=== PATIENT | female | born 1960 | race Caucasian/White ===

== ENCOUNTER 2016-09-15 10:43 | Emergency (ER) | payer OTHER ==
[2016-09-15 10:48] VITALS: BP 122/90; PULSE 103; TEMP 99.2; BMI 24.7
[2016-09-15] MEDS ORDERED: SODIUM CHLORIDE 0.9% 1000 ML INFUS.BAG IV ONE (11:19)
--- NOTE | 2016-09-15 11:19 | PDOC ---
History of Present Illness - General Chief Complaint: Rash Stated Complaint: ALLERGIC RXN/ REDDISH SKIN Time Seen by Provider: 09/15/16 10:58 - History of Present Illness Initial Comments: 09/15/16 11:19 CHIEF COMPLAINT: red skin HISTORY OF PRESENT ILLNESS: 56 yo F with hx of B cell lymphoma (s/p chemo 2009 , currently in remission) presents to [facility] with sudden onset rash since yesterday evening. Patient reports the rash as being " a little itchy, but mostly uncomfortable." She states that she was prescribed Bactrim 8 days ago for a "fungus infection in my toenail" and had no problems until last night around 5 pm when she noticed "a little redness" but today the rash erupted and was "way worse." She denies any fever, chills, vomiting, bleeding, or pain. She reports that she has never had Bactrim before. No recent travel or sick contacts. PAST MEDICAL HISTORY: Denies past medical history FAMILY HISTORY: Denies SOCIAL HISTORY: Denies tobacco, alcohol, illicit drug use. SURGICAL HISTORY: Denies ALLERGIES: pineapple REVIEW OF SYSTEMS General/Constitutional: Denies fever or chills. Denies weakness, weight change. HEENT: Denies change in vision. Denies ear pain or discharge. Denies sore throat. Cardiovascular: Denies chest pain or shortness of breath. Respiratory: Denies cough, wheezing, or hemoptysis. Gastrointestinal: Denies nausea, vomiting, diarrhea or constipation. Denies rectal bleeding. Genitourinary: Denies dysuria, frequency, or change in urination. Musculoskeletal: Denies joint or muscle swelling or pain. Denies neck or back pain. Skin:Rash to head, neck, torso, arms. Neurologic: Denies headache, vertigo, loss of consciousness, or loss of sensation. Psychiatric: Denies depression or anxiety. Endocrine: Denies increased thirst. Denies abnormal weight change. Hematologic/Lymphatic: Denies anemia, easy bleeding, or history of blood clots. Allergic/Immunologic: Denies hives or skin allergy. Denies latex allergy. PHYSICAL EXAM General Appearance: Well-appearing, appropriately dressed. No apparent distress , no intoxication. HEENT: No mucutaneous lesions appreciated to mouth including lips and buccal mucosa. . EOMI, PERRLA, normal ENT inspection, normal voice, TMs normal, pharynx normal. No conjunctival pallor. No photophobia, scleral icterus. Neck: Supple. Trachea midline. No tenderness, rigidity, carotid bruit, stridor , lymphadenopathy, or thyromegaly. Respiratory/Chest: Lungs CTAB. Cardiovascular: RRR. S1, S2. Gastrointestinal/Abdominal: Normal bowel sounds. Abdomen soft, non-distended. No tenderness or rebound tenderness. No organomegaly, pulsatile mass, guarding , hernia, hepatomegaly, splenomegaly. Musculoskeletal/Extremities: Normal inspection. FROM of all extremities, normal capillary refill. Pelvis Stable. No CVA tenderness. No tenderness to extremities, pedal edema, swelling, erythema or deformity. Integumentary: Generalized, macular, erythematous rash to head, neck, torso, bilateral arms. Appropriate color, dry, warm. No cyanosis, erythema, jaundice or rash Neurologic: sheet taker II-XII intact. Fully oriented, alert. Appropriate mood/affect. Motor strength 5/5. No appreciable EOM palsy, facial droop or sensory deficit. Past History - Past Medical History Allergies/Adverse Reactions: Allergies Allergy/AdvReac Type Severity Reaction Status Date / Time pineapple [Pineapple] Allergy Mild Swelling Verified 09/15/16 10:48 Home Medications: Ambulatory Orders Diphenhydramine HCl [Benadryl -] 25 mg PO Q6H #28 capsule 09/15/16 Gabapentin [Neurontin] 100 mg PO BID 09/15/16 Ibuprofen [Motrin -] 800 mg PO TID 09/15/16 Loratadine 10 mg PO DAILY 09/15/16 Sulfamethoxazole/Trimethoprim [Bactrim Ds -] 1 tab PO BID 09/15/16 Anemia: No Asthma: No Cancer: No HTN: Yes - Surgical History Abdominal Surgery: No Appendectomy: No Cardiac Surgery: No - Psycho/Social/Smoking Cessation Hx Anxiety: No Suicidal Ideation: No Smoking Status: No Smoking History: Never smoked Have you smoked in the past 12 months: No Number of Cigarettes Smoked Daily: 0 Hx Alcohol Use: No Drug/Substance Use Hx: No Substance Use Type: None Hx Substance Use Treatment: No *Physical Exam - Vital Signs Last Vital Signs Temp Pulse Resp BP Pulse Ox 99.2 F 103 H 20 122/90 96 09/15/16 10:44 09/15/16 10:44 09/15/16 10:44 09/15/16 10:44 09/15/16 10:44 Medical Decision Making - Medical Decision Making 09/15/16 13:01 56 yo F with hx of B-cell lymphoma (s/p chemo 2009, currently in remission) presents to [facility] with macular erythematous rash to head, neck, torso, and b/l arms s/p taking Bactrim for a toe infection x 8 days. Vitals signs notable for HR 103. Clinical presentation consistent with rash secondary to sulfa drug. -IVF -Benadryl 25 mg IVPB -Decadron 10 mg po Patient reassessed; states she is feeling better. Patient HR now 84. Advised to discontinue Bactrim and of signs and symptoms for return to ER; patient verbalized understanding and agrees to plan. 09/15/16 15:34 *DC/Admit/Observation/Transfer Diagnosis at time of Disposition: Allergic drug rash - Discharge Dispostion Disposition: HOME Condition at time of disposition: Improved Admit: No - Prescriptions Prescriptions: Diphenhydramine HCl [Benadryl -] 25 mg PO Q6H #28 capsule - Referrals Referrals: Zeferino Stoll MD [Primary Care Provider] - - Patient Instructions Printed Discharge Instructions: DI for Adverse Drug Reaction -- Other Additional Instructions: Please take medication as prescribed and follow up with your primary care doctor by the end of next week. Please stop taking Bactrim as discussed. If you develop any difficulty speaking, swallowing, or breathing, or develop any swelling to the mouth, lips, tongue, or throat, please return to the ER immediately.
[2016-09-15] MEDS ORDERED: DEXAMETHASONE LIQUID 0.5 MG/5 ML 240 ML BULK BOTTLE PO ONE (11:20)
[2016-09-15] MEDS ORDERED: DEXAMETHASONE SOD PHOSPHATE 10 MG/1 ML VIAL ONE (11:35)
== END 2016-09-15 13:53 | disposition home or self-care (01) ==
LOC: JERFT 10:43
PROC: 3E033GC Introduction of Other Therapeutic Substance into Peripheral Vein, Percutaneous Approach (ICD-10-PCS; principal; 2016-09-15)
PROC: 3E0337Z Introduction of Electrolytic and Water Balance Substance into Peripheral Vein, Percutaneous Approach (ICD-10-PCS; 2016-09-15)
DX: T50.905A Adverse effect of unspecified drugs, medicaments and biological substances, initial encounter (principal); Y92.9 Unspecified place or not applicable; C85.10 Unspecified B-cell lymphoma, unspecified site; I10 Essential (primary) hypertension
CPT/HCPCS: 99281-25

== ENCOUNTER 2019-07-05 13:57 | Inpatient (IN) | payer OTHER ==
--- NOTE | 2019-07-05 14:17 | PDOC ---
Rapid Medical Evaluation Medical Evaluation: Allergies Allergy/AdvReac Type Severity Reaction Status Date / Time pineapple [Pineapple] Allergy Mild Swelling Verified 09/15/16 10:48 07/05/19 14:17 I performed a brief in-person evaluation of this patient. Briefly, this is a 59-year-old female with a history of B-cell lymphoma ( completed chemotherapy in 2019) who presents with 3 days of fever, shaking chills, and bodyaches. She had a similar episode at the end of May and was seen in an urgent care on 06/15 and treated with a full course of Tamiflu (it is unclear whether she had a positive influenza test at that time). She denies cough, throat pain, abdominal pain, n/v/d, or any other focal symptoms. Pertinent physical exam findings: Alert, oriented, ill-appearing. Lungs CTAB. Febrile to 103 orally (took ibuprofen this morning) and tachycardic to 119, SpO2 94%, tachypneic at 24 RR/min. I have ordered the following: Influenza swab Sepsis panel CXR Tylenol Fluids Patient to proceed to the Main ED for further evaluation. Discharge Disposition - Diagnosis Fever - Discharge Dispostion Condition at time of disposition: Stable - Referrals - Patient Instructions - Post Discharge Activity
[2019-07-05] MEDS ORDERED: SODIUM CHLORIDE 1,000 ML IV STA (14:19)
[2019-07-05] MEDS ORDERED: ACETAMINOPHEN 500 MG TABLET (FP) PO ONE (14:19)
[2019-07-05] MEDS ORDERED: ACETAMINOPHEN 325 MG TABLET (FP) ONE (15:05)
--- NOTE | 2019-07-05 15:07 | PDOC ---
History of Present Illness - General Chief Complaint: SIRS, Suspected/Possible Stated Complaint: COLD SYMPTOMS Time Seen by Provider: 07/05/19 14:48 - History of Present Illness Initial Comments: Ms. Knight is a 59 y/o female with PMH significant B cell lymphoma, last chemotherapy 2009, thyroiditis, presenting today with fever and generalized muscle aches. Reports that she went to her PCP in June 15 for fever, chills , and muscle aches, with positive flu swab, and was give tamiflu. She completed her course and saw her PCP again on Tuesday, and was feeling much improved. She had a fever again at home over three days, and took 3 of ibuprofen yesterday. Presents today for fever, chills, and generalized body aches. Past History - Past Medical History Allergies/Adverse Reactions: Allergies Allergy/AdvReac Type Severity Reaction Status Date / Time pineapple [Pineapple] Allergy Mild Swelling Verified 09/15/16 10:48 Home Medications: Ambulatory Orders Diphenhydramine HCl [Benadryl -] 25 mg PO Q6H #28 capsule 09/15/16 Gabapentin [Neurontin] 100 mg PO BID 09/15/16 Ibuprofen [Motrin -] 800 mg PO TID 09/15/16 Loratadine 10 mg PO DAILY 09/15/16 Sulfamethoxazole/Trimethoprim [Bactrim Ds -] 1 tab PO BID 09/15/16 Anemia: No Asthma: No Cancer: No COPD: No HTN: Yes - Surgical History Abdominal Surgery: No Appendectomy: No Cardiac Surgery: No - Immunization History Immunization Up to Date: No - Psycho Social/Smoking Cessation Hx Smoking Status: No Smoking History: Never smoked Have you smoked in the past 12 months: No Number of Cigarettes Smoked Daily: 0 Information on smoking cessation initiated: No Hx Alcohol Use: No Drug/Substance Use Hx: No Substance Use Type: None Hx Substance Use Treatment: No Review of Systems - Review of Systems Comments:: GENERAL/CONSTITUTIONAL: Reports fever and chills. No weakness._ HEAD, EYES, EARS, NOSE AND THROAT: No change in vision. No change in hearing. No sore throat._ CARDIOVASCULAR: No chest pain or shortness of breath_ RESPIRATORY: Denies cough, hemoptysis_ GASTROINTESTINAL: No nausea, vomiting, diarrhea or constipation._ GENITOURINARY: No dysuria, frequency, or change in urination._ MUSCULOSKELETAL: Reports generalized joint and muscle swelling. No neck or back pain._ SKIN: No rash_ NEUROLOGIC: No headache, vertigo, loss of consciousness, or change in strength/ sensation._ ENDOCRINE: No increased thirst. No abnormal weight change_ HEMATOLOGIC/LYMPHATIC: No anemia, easy bleeding, or history of blood clots._ ALLERGIC/IMMUNOLOGIC: No hives or skin allergy._ *Physical Exam - Vital Signs Last Vital Signs Temp Pulse Resp BP Pulse Ox 103.0 F H 116 H 16 138/89 94 L 07/05/19 14:17 07/05/19 14:17 07/05/19 14:17 07/05/19 14:17 07/05/19 14:17 - Physical Exam GENERAL: Awake, alert, and oriented to person/place/time, in no acute distress_ HEAD: No signs of trauma, normoc ephalic, atraumatic _ EYES: PERRLA, EOMI, sclera anicteric, conjunctiva clear_ ENT: Hearing grossly normal, nares patent, oropharynx clear without exudates. No uvular deviation. Moist mucosa_ NECK: Normal ROM, supple, no lymphadenopathy, JVD, or masses_ LUNGS: No distress, speaks in full sentences, clear to auscultation bilaterally _ HEART: Regular rate and rhythm, normal S1 and S2, no murmurs appreciated, peripheral pulses normal and equal bilaterally._ ABDOMEN: Soft, nontender, normoactive bowel sounds. No guarding, no rebound. No masses_ EXTREMITIES: Normal inspection, Normal range of motion, no edema. No clubbing or cyanosis_ NEUROLOGICAL: Cranial nerves II through XII grossly intact. Normal speech, normal gait, no focal sensorimotor deficits _ SKIN: Warm, Dry, normal turgor, no rashes or lesions noted_ ED Treatment Course - LABORATORY CBC & Chemistry Diagram: 07/05/19 14:53 07/05/19 14:53 Medical Decision Making - Medical Decision Making 59F hx of B-cell lymphoma presenting with fever, generalized body aches, chills. 07/05/19 16:29 Labs reviewed. Laboratory Last Values WBC 23.2 K/mm3 (4.0-10.0) H 07/05/19 14:53 RBC 4.94 M/mm3 (3.60-5.2) 07/05/19 14:53 Hgb 13.1 GM/dL (10.7-15.3) 07/05/19 14:53 Hct 40.4 % (32.4-45.2) 07/05/19 14:53 MCV 81.6 fl (80-96) 07/05/19 14:53 MCH 26.6 pg (25.7-33.7) 07/05/19 14:53 MCHC 32.5 g/dl (32.0-36.0) 07/05/19 14:53 RDW 14.2 % (11.6-15.6) 07/05/19 14:53 Plt Count 229 K/MM3 (134-434) D 07/05/19 14:53 MPV 8.0 fl (7.5-11.1) 07/05/19 14:53 Absolute Neuts (auto) 15.6 K/mm3 (1.5-8.0) H 07/05/19 14:53 Neutrophils % 67.4 % (42.8-82.8) D 07/05/19 14:53 Lymphocytes % 22.0 % (8-40) D 07/05/19 14:53 Monocytes % 10.3 % (3.8-10.2) H 07/05/19 14:53 Eosinophils % 0.0 % (0-4.5) D 07/05/19 14:53 Basophils % 0.3 % (0-2.0) 07/05/19 14:53 Nucleated RBC % 0 % (0-0) 07/05/19 14:53 PT with INR 13.90 SEC (9.7-13.0) H 07/05/19 14:53 INR 1.18 (0.83-1.09) H 07/05/19 14:53 PTT (Actin FS) 29.2 SECONDS (25.2-36.5) 07/05/19 14:53 Sodium 133 mmol/L (136-145) L 07/05/19 14:53 Potassium 4.2 mmol/L (3.5-5.1) 07/05/19 14:53 Chloride 99 mmol/L (98-107) 07/05/19 14:53 Carbon Dioxide 26 mmol/L (21-32) 07/05/19 14:53 Anion Gap 8 MMOL/L (8-16) 07/05/19 14:53 BUN 14.5 mg/dL (7-18) 07/05/19 14:53 Creatinine 0.9 mg/dL (0.55-1.3) 07/05/19 14:53 Est GFR (CKD-EPI)AfAm 81.11 07/05/19 14:53 Est GFR (CKD-EPI)NonAf 69.99 07/05/19 14:53 Random Glucose 111 mg/dL (74-106) H 07/05/19 14:53 Lactic Acid 2.3 mmol/L (0.4-2.0) H* 07/05/19 14:53 Calcium 8.5 mg/dL (8.5-10.1) 07/05/19 14:53 Total Bilirubin 0.6 mg/dL (0.2-1) 07/05/19 14:53 AST 38 U/L (15-37) H 07/05/19 14:53 ALT 33 U/L (13-61) 07/05/19 14:53 Alkaline Phosphatase 124 U/L (45-117) H 07/05/19 14:53 LD Total 262 U/L (84-246) H 07/05/19 14:53 Total Protein 6.8 g/dl (6.4-8.2) 07/05/19 14:53 Albumin 2.8 g/dl (3.4-5.0) L 07/05/19 14:53 Influenza A (Rapid) Negative (Negative) 07/05/19 14:23 Influenza B (Rapid) Negative (Negative) 07/05/19 14:23 07/05/19 16:40 CXR shows findings c/w COPD, otherwise no acute intra thoracic process. 07/05/19 17:24 UA shows signs of UTI. Will treat with ceftriaxone. Urine Test Results Urine Color Yellow 07/05/19 16:15 Urine Appearance Cloudy 07/05/19 16:15 Urine pH 7.0 (5.0-8.0) 07/05/19 16:15 Ur Specific [place] 1.009 (1.010-1.035) L 07/05/19 16:15 Urine Protein 2+ (NEGATIVE) H 07/05/19 16:15 Urine Glucose (UA) Negative (NEGATIVE) 07/05/19 16:15 Urine Ketones Negative (NEGATIVE) 07/05/19 16:15 Urine Blood 2+ (NEGATIVE) H 07/05/19 16:15 Urine Nitrite Positive (NEGATIVE) H 07/05/19 16:15 Urine Bilirubin Negative (NEGATIVE) 07/05/19 16:15 Ur Leukocyte Esterase 2+ (NEGATIVE) H 07/05/19 16:15 07/05/19 17:34 Pt reassessed. Sats 94-97% while ambulating. Vital Signs Temperature 100.4 F H 07/05/19 17:26 Pulse Rate 89 07/05/19 17:26 Respiratory Rate 16 07/05/19 14:17 Blood Pressure 94/53 L 07/05/19 17:26 O2 Sat by Pulse Oximetry (%) 96 07/05/19 17:26 07/05/19 17:[address] Preston. Discharge - Discharge Information Problems reviewed: Yes Clinical Impression/Diagnosis: Fever Condition: Stable - Admission Yes - Follow up/Referral - Patient Discharge Instructions - Post Discharge Activity
[2019-07-05 15:09] LABS: BASO % 0.3 % (0-2.0); HEMATOCRIT 40.4 % (32.4-45.2); HEMOGLOBIN 13.1 GM/dL (10.7-15.3); MCH 26.6 pg (25.7-33.7); MCHC 32.5 g/dl (32.0-36.0); MEAN CELL VOLUME 81.6 fl (80-96); MONO % 10.3 % (3.8-10.2); NEUT % 67.4 % (42.8-82.8); PLATELET COUNT 229 K/MM3 (134-434); RBC 4.94 M/mm3 (3.60-5.2); RDW 14.2 % (11.6-15.6); WHITE BLOOD COUNT 23.2 K/mm3 (4.0-10.0)
--- NOTE | 2019-07-05 15:18 | PDOC ---
Documentation entered by Aminta Vera SCRIBE, acting as scribe for Marely Chacon MD. Marely Chacon MD: This documentation has been prepared by the Jody floyd Brenda, SCRIBE, under my direction and personally reviewed by me in its entirety. I confirm that the documentation accurately reflects all work, treatment, procedures, and medical decision making performed by me. Attending Attestation - Resident Resident Name: KwanAbdiel - ED Attending Attestation I have performed the following: I have examined & evaluated the patient, The case was reviewed & discussed with the resident, I agree w/resident's findings & plan, Exceptions are as noted - HPI HPI: 07/05/19 15:16 59yo hx thyroiditis, B cell lymphoma (in remission since 2009) presents to the ED with fever, chills, bodyaches x 3 days. tmax 103 Similar sxs 06/15/19, had +flu, treated with tamiflu, completed last tuesday, got better Took ibuprofen yesterday +urinary frequency, denies hematuria, dysuria, urgency, flank pain Denies N/V/D, headache, dizziness, focal weakness/numbness, rashes, stiff neck - Physicial Exam PE: 07/05/19 18:30 agree with resident exam - Medical Decision Making 07/05/19 18:00 59yo F presents to the ED with fever, bodyaches, and chills Here, febrile 103, tachycardic 117, hypoxic 94% Sepsis w/u initiated, pt found to have leukocytosis to 23, lactic 2.4, UA floridly + UTI Based on previous sensitivities, given ceftriaxone Given 30cc/kg IVF ADmitted to Dr. Preston for further mgmt Case discussed in detail with admitting physician including history, physical exam and ancillary studies. Admitting physician has assumed care for the patient, will follow all pending diagnostics and will complete the evaluation and treatment.
[2019-07-05 15:29] LABS: INR 1.18 (0.83-1.09); PROTHROMBIN TIME (PATIENT) 13.9 SEC (9.7-13.0)
[2019-07-05 15:31] LABS: ACTIVATED PTT 29.2 SECONDS (25.2-36.5)
[2019-07-05 15:44] LABS: ALBUMIN 2.8 g/dl (3.4-5.0); BILIRUBIN,TOTAL 0.6 mg/dL (0.2-1); BLOOD UREA NITROGEN 14.5 mg/dL (7-18); CALCIUM 8.5 mg/dL (8.5-10.1); CREATININE 0.9 mg/dL (0.55-1.3); POTASSIUM 4.2 mmol/L (3.5-5.1); TOT PROT 6.8 g/dl (6.4-8.2)
[2019-07-05 16:48] LABS: MACROCYTOSIS 0; OVALOCYTE 1+; PLATELET ESTIMATE NORMAL; TARGET CELLS 1+
[2019-07-05 17:02] LABS: EPI CELLS 0.4 /HPF (0-5/HPF); HYALINE CASTS 5 /lpf (0-8); URINE APPEARANCE CLOUDY; URINE BACTERIA 6158.6 /hpf (NEGATIVE); URINE BILIRUBIN NEGATIVE (NEGATIVE); URINE COLOR YELLOW; URINE GLUCOSE (UA) NEGATIVE (NEGATIVE); URINE KETONE NEGATIVE (NEGATIVE); URINE LEUK ESTERASE 2+ (NEGATIVE); URINE NITRITE POSITIVE (NEGATIVE); URINE PROTEIN 2+ (NEGATIVE); URINE RBC 8 /hpf (0-4); URINE UROBILINOGEN 0.2 mg/dL (0.2-1.0); URINE WBC 89 /hpf (0-5)
[2019-07-05 17:09] LABS: ANISOCYTOSIS 1+
[2019-07-05] MEDS ORDERED: CEFTRIAXONE 1,000 MG in DEXTROSE 5%-WATER - 50 ML IVPB ONE (17:18)
[2019-07-05] MEDS ORDERED: SODIUM CHLORIDE 0.9% 500 ML INFUS.BAG IV ONE (17:23)
--- NOTE | 2019-07-05 18:24 | HP ---
Admitting History and Physical - Admission History of Present Illness: Pt is a 59 y/o female with PMH significant B cell lymphoma(last chemotherapy 2009), and thyroiditis. Pt presented to the ER today with fever and generalized muscle aches. Reports that she went to her PCP in June 15 for fever, chills , and muscle aches, with positive flu swab, and was given tamiflu. She completed her course and saw her PCP again on Tuesday, and was feeling much improved. However she then developed a fever again at home over three days, and took 3 of ibuprofen yesterday. Presents today for fever, chills, and generalized body aches. - Past Medical History Heme/Onc: Yes: Other (B cell lymphoma) Endocrine: Yes: Hyperthyroidism - Smoking History Smoking history: Never smoked Have you smoked in the past 12 months: No Aproximately how many cigarettes per day: 0 - Alcohol/Substance Use Hx Alcohol Use: No Home Medications - Allergies Allergies/Adverse Reactions: Allergies Allergy/AdvReac Type Severity Reaction Status Date / Time pineapple [Pineapple] Allergy Mild Swelling Verified 09/15/16 10:48 - Home Medications Home Medications: Ambulatory Orders Gabapentin [Neurontin] 100 mg PO BID 09/15/16 Ibuprofen [Motrin -] 800 mg PO TID 09/15/16 Methimazole 5 mg PO BID 07/05/19 Multivitamin [Multiple Vitamins] 1 each PO DAILY 07/05/19 Family Medical History Family History: Unremarkable Review of Systems - Review of Systems Constitutional: reports: Fever, Malaise, Weakness Eyes: reports: No Symptoms HENT: reports: No Symptoms Neck: reports: No Symptoms Cardiovascular: reports: No Symptoms Respiratory: reports: No Symptoms Gastrointestinal: reports: No Symptoms Genitourinary: reports: No Symptoms Physical Examination Vital Signs: Vital Signs Temperature 100.4 F H 07/05/19 17:26 Pulse Rate 89 07/05/19 17:26 Respiratory Rate 16 07/05/19 14:17 Blood Pressure 94/53 L 07/05/19 17:26 O2 Sat by Pulse Oximetry (%) 96 07/05/19 17:26 Constitutional: Yes: No Distress Eyes: Yes: WNL HENT: Yes: WNL Neck: Yes: WNL, Supple Cardiovascular: Yes: WNL, Regular Rate and Rhythm Respiratory: Yes: WNL, Regular, CTA Bilaterally Gastrointestinal: Yes: WNL, Normal Bowel Sounds, Soft Musculoskeletal: Yes: WNL Extremities: Yes: WNL Edema: No Neurological: Yes: WNL, Alert, Oriented ...Motor Strength: WNL Labs: CBC, BMP 07/05/19 14:53 07/05/19 14:53 Problem List - Problems (1) Sepsis Assessment/Plan: Due to gm (-) bacteremia Cont IV antibxs Monitor BC/urine culture Cont IVF Lactic acid now normal Code(s): A41.9 - SEPSIS, UNSPECIFIED ORGANISM (2) B-cell lymphoma Code(s): C85.10 - UNSPECIFIED B-CELL LYMPHOMA, UNSPECIFIED SITE (3) Bacteremia Assessment/Plan: Gm (-) bacilli Cont IV antibx As per ID Code(s): R78.81 - BACTEREMIA (4) COPD (chronic obstructive pulmonary disease) Assessment/Plan: CXR shows COPD Code(s): J44.9 - CHRONIC OBSTRUCTIVE PULMONARY DISEASE, UNSPECIFIED
[2019-07-05] MEDS ORDERED: CEFTRIAXONE 1 GM/50 ML BAG ONE (18:37)
[2019-07-05] MEDS: ACETAMINOPHEN 325 MG TABLET (FP) PO PRN (22:00)
[2019-07-06] MEDS: DEXTROSE 5%-0.45% SALINE 1,000 ML IV SCH (01:29)
[2019-07-06] MEDS: ACETAMINOPHEN 325 MG TABLET (FP) PO PRN ×3 (04:54→22:47)
[2019-07-06] MEDS ORDERED: CEFTRIAXONE 1 GM in DEXTROSE 5%-WATER - 50 ML IVPB SCH (10:00)
[2019-07-06] MEDS ORDERED: cefTRIAXone SODIUM 1 GM VIAL ONE (10:19)
[2019-07-06] MEDS ORDERED: PT OWN MED DRAWER 7, Y5N ONE (10:19)
[2019-07-06] MEDS ORDERED: DEXTROSE 5%-WATER - 50 ML IVPB ONE ×2 (10:20→17:48)
[2019-07-06] MEDS: METHIMAZOLE 5 MG TABLET (FP) PO SCH ×2 (10:27→21:23)
[2019-07-06] MEDS: GABAPENTIN 100 MG CAPSULE PO SCH ×2 (10:27→21:23)
--- NOTE | 2019-07-06 15:36 | CON.ID ---
Consult Consult Specialty:: infectious diseases Referred by:: Reason for Consultation:: fever,weakness - History of Present Illness Chief Complaint: weakness,fever History of Present Illness: 59 y/o female with PMH significant B cell lymphoma, last chemotherapy 2009, thyroiditis, presenting today with fever and generalized muscle aches. Reports that she went to her PCP in June 15 for fever, chills, and muscle aches, with positive flu swab, and was give tamiflu. She completed her course and saw her PCP again on Tuesday, and was feeling much improved. She had a fever again at home over three days, and took 3 of ibuprofen yesterday. Presents today for fever, chills, and generalized body aches. currently feels better,spiked a fever patient was worked up and is having all her bottles positive for gm negative bacteremia - History Source History Provided By: Patient Limitations to Obtaining History: Language Barrier - Alcohol/Substance Use Hx Alcohol Use: No - Smoking History Smoking history: Never smoked Have you smoked in the past 12 months: No Aproximately how many cigarettes per day: 0 Home Medications - Allergies Allergies/Adverse Reactions: Allergies Allergy/AdvReac Type Severity Reaction Status Date / Time pineapple [Pineapple] Allergy Mild Swelling Verified 09/15/16 10:48 - Home Medications Home Medications: Ambulatory Orders Gabapentin [Neurontin] 100 mg PO BID 09/15/16 Ibuprofen [Motrin -] 800 mg PO TID 09/15/16 Methimazole 5 mg PO BID 07/05/19 Multivitamin [Multiple Vitamins] 1 each PO DAILY 07/05/19 Review of Systems - Review of Systems Constitutional: reports: Fever, Weakness, Other Eyes: reports: No Symptoms HENT: reports: No Symptoms Neck: reports: No Symptoms Cardiovascular: reports: No Symptoms Respiratory: reports: No Symptoms Gastrointestinal: reports: No Symptoms Genitourinary: reports: No Symptoms Musculoskeletal: reports: No Symptoms Integumentary: reports: No Symptoms Neurological: reports: No Symptoms Endocrine: reports: No Symptoms Hematology/Lymphatic: reports: No Symptoms Psychiatric: reports: No Symptoms Physical Exam Vital Signs: Vital Signs Temperature 100.0 F H 07/06/19 14:50 Pulse Rate 101 H 07/06/19 14:50 Respiratory Rate 07/06/19 14:50 Blood Pressure 150/87 07/06/19 14:50 O2 Sat by Pulse Oximetry (%) 98 07/06/19 09:00 Constitutional: Yes: Calm, Mild Distress Eyes: Yes: Conjunctiva Clear HENT: Yes: Atraumatic, Normocephalic Neck: Yes: Supple, Trachea Midline Cardiovascular: Yes: Regular Rate and Rhythm Respiratory: Yes: Regular, CTA Bilaterally Gastrointestinal: Yes: Normal Bowel Sounds, Soft Musculoskeletal: Yes: WNL Extremities: Yes: WNL Neurological: Yes: Alert, Oriented Psychiatric: Yes: Alert, Oriented Labs: CBC, BMP 07/05/19 14:53 07/05/19 14:53 Imaging - Results Chest X-ray: Report Reviewed, Image Reviewed Assessment/Plan this patient with multiple medical problems coming to the hospital with fever and chills and with h/o of recent flu now with positive blood cx i am going to change the abx to zosyn will await for cx report then will decide monitor for fevers rest as per the team
[2019-07-06] MEDS ORDERED: PIPERACILLIN/TAZOBACTAM 3.375 GM VIAL IVPB ONE (17:48)
[2019-07-06] MEDS: PIPERACILLIN/TAZOB 3.375 GM 3.375 GM in DEXTROSE 5%-WATER - 50 ML IVPB SCH (18:06)
--- NOTE | 2019-07-06 21:55 | PN ---
Progress Note, Physician History of Present Illness: Pt still spiking temp today - Current Medication List Current Medications: Active Medications Acetaminophen (Tylenol -) 650 mg PO Q6H PRN PRN Reason: FEVER AND PAIN Last Admin: 07/06/19 13:48 Dose: 650 mg Gabapentin (Neurontin -) 100 mg PO BID TEA Last Admin: 07/06/19 21:23 Dose: 100 mg Dextrose/Sodium Chloride (D5-1/2ns -) 1,000 mls @ 75 mls/hr IV ASDIR TEA Last Admin: 07/06/19 01:29 Dose: 75 mls/hr Piperacillin Sod/Tazobactam (Sod 3.375 gm/ Dextrose) 50 mls @ 100 mls/hr IVPB Q8H-IV TEA; Protocol Last Admin: 07/06/19 18:06 Dose: 100 mls/hr Methimazole (Tapazole -) 5 mg PO BID TEA Last Admin: 07/06/19 21:23 Dose: 5 mg - Objective Vital Signs: Vital Signs Temperature 97.9 F 07/06/19 20:39 Pulse Rate 76 07/06/19 20:39 Respiratory Rate 20 07/06/19 20:39 Blood Pressure 113/73 07/06/19 20:39 O2 Sat by Pulse Oximetry (%) 98 07/06/19 09:00 Cardiovascular: Yes: WNL, Regular Rate and Rhythm Respiratory: Yes: Other (Coarse BS B/L) Gastrointestinal: Yes: WNL, Normal Bowel Sounds, Soft Labs: CBC, BMP 07/05/19 14:53 07/05/19 14:53 INR, PTT INR 1.18 (0.83-1.09) H 07/05/19 14:53 Problem List - Problems (1) Sepsis Assessment/Plan: Due to gm (-) bacteremia Antibiotics changed to IV zosyn Monitor BC/urine culture Cont IVF Lactic acid now normal Code(s): A41.9 - SEPSIS, UNSPECIFIED ORGANISM (2) Bacteremia Assessment/Plan: Gm (-) bacilli Cont IV zosyn As per ID Code(s): R78.81 - BACTEREMIA (3) Hyperthyroidism Assessment/Plan: Cont tapizole Check TSH Endo consult Code(s): E05.90 - THYROTOXICOSIS, UNSP WITHOUT THYROTOXIC CRISIS OR STORM (4) COPD (chronic obstructive pulmonary disease) Assessment/Plan: CXR shows COPD Code(s): J44.9 - CHRONIC OBSTRUCTIVE PULMONARY DISEASE, UNSPECIFIED (5) B-cell lymphoma Code(s): C85.10 - UNSPECIFIED B-CELL LYMPHOMA, UNSPECIFIED SITE
[2019-07-07] MEDS ORDERED: PIPERACILLIN/TAZOBACTAM 3.375 GM VIAL IVPB ONE ×3 (01:24→17:53)
[2019-07-07] MEDS ORDERED: DEXTROSE 5%-WATER - 50 ML IVPB ONE ×3 (01:25→17:54)
[2019-07-07] MEDS: PIPERACILLIN/TAZOB 3.375 GM 3.375 GM in DEXTROSE 5%-WATER - 50 ML IVPB SCH ×3 (01:47→17:56)
[2019-07-07] MEDS: DEXTROSE 5%-0.45% SALINE 1,000 ML IV SCH ×3 (01:47→21:42)
[2019-07-07 10:21] LABS: ALBUMIN 2.3 g/dl (3.4-5.0); BASO % 0.9 % (0-2.0); BILIRUBIN,TOTAL 0.4 mg/dL (0.2-1); BLOOD UREA NITROGEN 9.6 mg/dL (7-18); CALCIUM 8.3 mg/dL (8.5-10.1); CREATININE 0.8 mg/dL (0.55-1.3); EOS % 0.3 % (0-4.5); HEMATOCRIT 36.1 % (32.4-45.2); HEMOGLOBIN 11.6 GM/dL (10.7-15.3); LYMPH % 36.9 % (8-40); MCH 26.4 pg (25.7-33.7); MCHC 32.1 g/dl (32.0-36.0); MEAN CELL VOLUME 82.1 fl (80-96); MEAN PLT VOLUME 9.2 fl (7.5-11.1); MONO % 13.2 % (3.8-10.2); NEUT % 48.7 % (42.8-82.8); PLATELET COUNT 230 K/MM3 (134-434); POTASSIUM 4.3 mmol/L (3.5-5.1); RBC 4.39 M/mm3 (3.60-5.2); RDW 14.5 % (11.6-15.6); TOT PROT 5.8 g/dl (6.4-8.2); WHITE BLOOD COUNT 12.1 K/mm3 (4.0-10.0)
[2019-07-07] MEDS: GABAPENTIN 100 MG CAPSULE PO SCH ×2 (10:40→21:43)
[2019-07-07] MEDS ORDERED: PT OWN MED DRAWER 7, Y5N ONE (10:41)
[2019-07-07] MEDS: METHIMAZOLE 5 MG TABLET (FP) PO SCH ×2 (10:42→21:43)
--- NOTE | 2019-07-07 16:27 | PN ---
Progress Note, Physician History of Present Illness: Pt states she feels much better today. Temp of 99.9F this a.m.. Breathing well. Denies abd pain/n/v/d, dysuria, suprapubic or flank pain. - Current Medication List Current Medications: Active Medications Acetaminophen (Tylenol -) 650 mg PO Q6H PRN PRN Reason: FEVER AND PAIN Last Admin: 07/06/19 22:47 Dose: 650 mg Gabapentin (Neurontin -) 100 mg PO BID TEA Last Admin: 07/07/19 10:40 Dose: 100 mg Dextrose/Sodium Chloride (D5-1/2ns -) 1,000 mls @ 75 mls/hr IV ASDIR TEA Last Admin: 07/07/19 06:34 Dose: 75 mls/hr Piperacillin Sod/Tazobactam (Sod 3.375 gm/ Dextrose) 50 mls @ 100 mls/hr IVPB Q8H-IV TEA; Protocol Last Admin: 07/07/19 10:38 Dose: 100 mls/hr Methimazole (Tapazole -) 5 mg PO BID TEA Last Admin: 07/07/19 10:42 Dose: 5 mg - Objective Vital Signs: Vital Signs Temperature 98.8 F 07/07/19 14:00 Pulse Rate 76 07/07/19 14:00 Respiratory Rate 20 07/07/19 14:00 Blood Pressure 117/73 07/07/19 14:00 O2 Sat by Pulse Oximetry (%) 96 07/07/19 09:00 Constitutional: Yes: No Distress, Calm Cardiovascular: Yes: Regular Rate and Rhythm Respiratory: Yes: Regular Gastrointestinal: Yes: Normal Bowel Sounds, Soft Genitourinary: Yes: WNL Musculoskeletal: Yes: WNL Extremities: Yes: WNL Integumentary: Yes: WNL Neurological: Yes: Alert, Oriented Labs: CBC, BMP 07/07/19 07:59 07/07/19 07:59 INR, PTT INR 1.18 (0.83-1.09) H 07/05/19 14:53 Microbiology 07/05/19 16:15 Urine - Urine Clean Catch Urine Culture - Preliminary Lactose Fermenting Neg Bacilli 07/05/19 14:53 Blood - Peripheral Venous Blood Culture - Preliminary Lactose Fermenting Neg Bacilli 07/05/19 14:53 Blood - Peripheral Venous Blood Culture - Preliminary Lactose Fermenting Neg Bacilli - ....Imaging Chest X-ray: Report Reviewed Problem List - Problems (1) B-cell lymphoma Code(s): C85.10 - UNSPECIFIED B-CELL LYMPHOMA, UNSPECIFIED SITE (2) Bacteremia Code(s): R78.81 - BACTEREMIA (3) COPD (chronic obstructive pulmonary disease) Code(s): J44.9 - CHRONIC OBSTRUCTIVE PULMONARY DISEASE, UNSPECIFIED (4) Fever Code(s): R50.9 - FEVER, UNSPECIFIED (5) Hyperthyroidism Code(s): E05.90 - THYROTOXICOSIS, UNSP WITHOUT THYROTOXIC CRISIS OR STORM (6) Sepsis Code(s): A41.9 - SEPSIS, UNSPECIFIED ORGANISM Assessment/Plan Gram negative Bacteremia UTI Sepsis Hx of B cell lymphoma -- Blood/Urine culture isolates pending -- wbc trending down, fevers appear to be resolving -- continue Zosyn for now -- continue monitor wbc, vitals closely
--- NOTE | 2019-07-07 20:21 | PN ---
Progress Note, Physician History of Present Illness: No new complaints - Current Medication List Current Medications: Active Medications Acetaminophen (Tylenol -) 650 mg PO Q6H PRN PRN Reason: FEVER AND PAIN Last Admin: 07/06/19 22:47 Dose: 650 mg Gabapentin (Neurontin -) 100 mg PO BID TEA Last Admin: 07/07/19 10:40 Dose: 100 mg Dextrose/Sodium Chloride (D5-1/2ns -) 1,000 mls @ 75 mls/hr IV ASDIR TEA Last Admin: 07/07/19 06:34 Dose: 75 mls/hr Piperacillin Sod/Tazobactam (Sod 3.375 gm/ Dextrose) 50 mls @ 100 mls/hr IVPB Q8H-IV TEA; Protocol Last Admin: 07/07/19 17:56 Dose: 100 mls/hr Methimazole (Tapazole -) 5 mg PO BID TEA Last Admin: 07/07/19 10:42 Dose: 5 mg - Objective Vital Signs: Vital Signs Temperature 97.4 F L 07/07/19 18:00 Pulse Rate 69 07/07/19 18:00 Respiratory Rate 07/07/19 18:00 Blood Pressure 130/77 07/07/19 18:00 O2 Sat by Pulse Oximetry (%) 96 07/07/19 09:00 Neck: Yes: WNL, Supple Cardiovascular: Yes: WNL, Regular Rate and Rhythm Respiratory: Yes: WNL, Regular, CTA Bilaterally Gastrointestinal: Yes: WNL, Normal Bowel Sounds, Soft Labs: CBC, BMP 07/07/19 07:59 07/07/19 07:59 INR, PTT INR 1.18 (0.83-1.09) H 07/05/19 14:53 Problem List - Problems (1) Sepsis Assessment/Plan: Due to Ecoli Cont IV zosyn Urine culture/BC (+) for Ecoli Lactic acid now normal Code(s): A41.9 - SEPSIS, UNSPECIFIED ORGANISM (2) Bacteremia Assessment/Plan: Urine culture/BC (+) for Ecoli Cont IV Zosyn Code(s): R78.81 - BACTEREMIA (3) Hyperthyroidism Assessment/Plan: Cont tapizole Check TSH Endo consult Code(s): E05.90 - THYROTOXICOSIS, UNSP WITHOUT THYROTOXIC CRISIS OR STORM (4) COPD (chronic obstructive pulmonary disease) Assessment/Plan: CXR shows COPD Code(s): J44.9 - CHRONIC OBSTRUCTIVE PULMONARY DISEASE, UNSPECIFIED (5) B-cell lymphoma Code(s): C85.10 - UNSPECIFIED B-CELL LYMPHOMA, UNSPECIFIED SITE
[2019-07-08] MEDS ORDERED: DEXTROSE 5%-WATER - 50 ML IVPB ONE ×2 (01:08→08:51)
[2019-07-08] MEDS ORDERED: PIPERACILLIN/TAZOBACTAM 3.375 GM VIAL IVPB ONE ×2 (01:08→08:51)
[2019-07-08] MEDS: PIPERACILLIN/TAZOB 3.375 GM 3.375 GM in DEXTROSE 5%-WATER - 50 ML IVPB SCH ×3 (01:43→19:00)
[2019-07-08] MEDS: DEXTROSE 5%-0.45% SALINE 1,000 ML IV SCH ×2 (01:43→22:08)
[2019-07-08 08:58] LABS: BASO % 0.9 % (0-2.0); EOS % 0.7 % (0-4.5); HEMOGLOBIN 11.3 GM/dL (10.7-15.3); LYMPH % 50.9 % (8-40); MCH 26.5 pg (25.7-33.7); MCHC 33.2 g/dl (32.0-36.0); MEAN CELL VOLUME 79.8 fl (80-96); MEAN PLT VOLUME 8.4 fl (7.5-11.1); MONO % 13.7 % (3.8-10.2); NEUT % 33.8 % (42.8-82.8); PLATELET COUNT 257 K/MM3 (134-434); RBC 4.26 M/mm3 (3.60-5.2); RDW 14.5 % (11.6-15.6); WHITE BLOOD COUNT 9.7 K/mm3 (4.0-10.0)
[2019-07-08] MEDS: METHIMAZOLE 5 MG TABLET (FP) PO SCH ×2 (09:21→22:07)
[2019-07-08] MEDS: GABAPENTIN 100 MG CAPSULE PO SCH ×2 (09:22→22:07)
[2019-07-08 09:32] LABS: ALBUMIN 2.3 g/dl (3.4-5.0); BILIRUBIN,TOTAL 0.8 mg/dL (0.2-1); BLOOD UREA NITROGEN 9.7 mg/dL (7-18); CALCIUM 8.1 mg/dL (8.5-10.1); CREATININE 0.8 mg/dL (0.55-1.3); POTASSIUM 3.5 mmol/L (3.5-5.1); TOT PROT 5.7 g/dl (6.4-8.2)
[2019-07-08 12:58] LABS: ANISOCYTOSIS 1+; MACROCYTOSIS 0; OVALOCYTE 1+; PLATELET ESTIMATE NORMAL; TARGET CELLS 1+
[2019-07-08] MEDS: ACETAMINOPHEN 325 MG TABLET (FP) PO PRN (17:35)
--- NOTE | 2019-07-08 18:44 | PN ---
Progress Note, Physician History of Present Illness: Pt feels well. Has no specific complaints. - Current Medication List Current Medications: Active Medications Acetaminophen (Tylenol -) 650 mg PO Q6H PRN PRN Reason: FEVER AND PAIN Last Admin: 07/08/19 17:35 Dose: 650 mg Gabapentin (Neurontin -) 100 mg PO BID [facility] Last Admin: 07/08/19 09:22 Dose: 100 mg Dextrose/Sodium Chloride (D5-1/2ns -) 1,000 mls @ 75 mls/hr IV ASDIR [facility] Last Admin: 07/08/19 01:43 Dose: Not Given Ceftriaxone Sodium 2 gm/ (Dextrose) 100 mls @ 200 mls/hr IVPB DAILY [facility]; Protocol Methimazole (Tapazole -) 5 mg PO BID [facility] Last Admin: 07/08/19 09:21 Dose: 5 mg - Objective Vital Signs: Vital Signs Temperature 98.9 F 07/08/19 15:00 Pulse Rate 74 07/08/19 15:00 Respiratory Rate 18 07/08/19 15:00 Blood Pressure 109/64 07/08/19 15:00 O2 Sat by Pulse Oximetry (%) 98 07/08/19 09:00 Constitutional: Yes: No Distress, Calm Cardiovascular: Yes: Regular Rate and Rhythm Respiratory: Yes: CTA Bilaterally Gastrointestinal: Yes: Normal Bowel Sounds, Soft Genitourinary: Yes: WNL Musculoskeletal: Yes: WNL Extremities: Yes: WNL Integumentary: Yes: WNL Neurological: Yes: Alert, Oriented Labs: CBC, BMP 07/08/19 07:00 07/08/19 07:00 INR, PTT INR 1.18 (0.83-1.09) H 07/05/19 14:53 Microbiology 07/05/19 14:53 Blood - Peripheral Venous Blood Culture - Final Escherichia Coli 07/05/19 16:15 Urine - Urine Clean Catch Urine Culture - Final Escherichia Coli 07/05/19 14:53 Blood - Peripheral Venous Blood Culture - Final Escherichia Coli Problem List - Problems (1) B-cell lymphoma Code(s): C85.10 - UNSPECIFIED B-CELL LYMPHOMA, UNSPECIFIED SITE (2) Bacteremia Code(s): R78.81 - BACTEREMIA (3) COPD (chronic obstructive pulmonary disease) Code(s): J44.9 - CHRONIC OBSTRUCTIVE PULMONARY DISEASE, UNSPECIFIED (4) Fever Code(s): R50.9 - FEVER, UNSPECIFIED (5) Hyperthyroidism Code(s): E05.90 - THYROTOXICOSIS, UNSP WITHOUT THYROTOXIC CRISIS OR STORM (6) Sepsis Code(s): A41.9 - SEPSIS, UNSPECIFIED ORGANISM Assessment/Plan E. coli Bacteremia UTI Sepsis Hx of B cell lymphoma -- urine/blood culture results noted -- d/c Zosyn, switch to Ceftriaxone -- repeat blood cultures -- leukocytosis resolved, temps trended down -- continue monitor
[2019-07-08] MEDS ORDERED: DEXTROSE 5%-WATER 100 ML IVPB ONE (19:43)
[2019-07-08] MEDS: CEFTRIAXONE 2 GM in DEXTROSE 5%-WATER 100 ML IVPB SCH (19:46)
[2019-07-08] MEDS ORDERED: PT OWN MED DRAWER 7, Y5N ONE (21:48)
--- NOTE | 2019-07-08 21:50 | PN ---
Progress Note, Physician History of Present Illness: No new complaints - Current Medication List Current Medications: Active Medications Acetaminophen (Tylenol -) 650 mg PO Q6H PRN PRN Reason: FEVER AND PAIN Last Admin: 07/08/19 17:35 Dose: 650 mg Gabapentin (Neurontin -) 100 mg PO BID TEA Last Admin: 07/08/19 09:22 Dose: 100 mg Dextrose/Sodium Chloride (D5-1/2ns -) 1,000 mls @ 75 mls/hr IV ASDIR TEA Last Admin: 07/08/19 01:43 Dose: Not Given Ceftriaxone Sodium 2 gm/ (Dextrose) 100 mls @ 200 mls/hr IVPB DAILY [facility]; Protocol Last Admin: 07/08/19 19:46 Dose: 200 mls/hr Methimazole (Tapazole -) 5 mg PO BID TEA Last Admin: 07/08/19 09:21 Dose: 5 mg - Objective Vital Signs: Vital Signs Temperature 100.7 F H 07/08/19 18:00 Pulse Rate 83 07/08/19 18:00 Respiratory Rate 18 07/08/19 18:00 Blood Pressure 138/82 07/08/19 18:00 O2 Sat by Pulse Oximetry (%) 98 07/08/19 09:00 Neck: Yes: WNL, Supple Cardiovascular: Yes: WNL, Regular Rate and Rhythm Respiratory: Yes: WNL, Regular, CTA Bilaterally Gastrointestinal: Yes: WNL, Normal Bowel Sounds, Soft Labs: CBC, BMP 07/08/19 07:00 07/08/19 07:00 INR, PTT INR 1.18 (0.83-1.09) H 07/05/19 14:53 Problem List - Problems (1) Sepsis Assessment/Plan: Due to Ecoli Cont IV ceftriaxone Urine culture/BC (+) for Ecoli Lactic acid now normal Code(s): A41.9 - SEPSIS, UNSPECIFIED ORGANISM (2) Bacteremia Assessment/Plan: Urine culture/BC (+) for Ecoli Cont IV ceftriaxone Code(s): R78.81 - BACTEREMIA (3) Hyperthyroidism Assessment/Plan: Cont tapizole TSH was normal Endo consult Code(s): E05.90 - THYROTOXICOSIS, UNSP WITHOUT THYROTOXIC CRISIS OR STORM (4) COPD (chronic obstructive pulmonary disease) Assessment/Plan: CXR shows COPD Code(s): J44.9 - CHRONIC OBSTRUCTIVE PULMONARY DISEASE, UNSPECIFIED (5) B-cell lymphoma Code(s): C85.10 - UNSPECIFIED B-CELL LYMPHOMA, UNSPECIFIED SITE
--- NOTE | 2019-07-08 22:53 | CONSULT ---
Consult Consult Specialty:: Endocrine Referred by:: dr.[email or web address] zheng Reason for Consultation:: hyperthyroidism - History of Present Illness Chief Complaint: fever weakness History of Present Illness: 59 y/o female with PMH Thyroiditis, B cell lymphoma, last chemotherapy 2009, presented with fever and generalized muscle aches. Reports that she went to her PCP in June 15 for fever, chills, and muscle aches, with positive flu swab, and was given tamiflu,. She completed her course and saw her PCP again on Tuesday , and was feeling much improved. She relapsed subsequently had fever and shakes, feeling weak dizzy she denies weight loss,nausea or vomiting. - Past Medical History Endocrine: Yes: Hyperthyroidism - Alcohol/Substance Use Hx Alcohol Use: No - Smoking History Smoking history: Never smoked Have you smoked in the past 12 months: No Aproximately how many cigarettes per day: 0 Home Medications - Allergies Allergies/Adverse Reactions: Allergies Allergy/AdvReac Type Severity Reaction Status Date / Time pineapple [Pineapple] Allergy Mild Swelling Verified 09/15/16 10:48 - Home Medications Home Medications: Ambulatory Orders Gabapentin [Neurontin] 100 mg PO BID 09/15/16 Ibuprofen [Motrin -] 800 mg PO TID 09/15/16 Methimazole 5 mg PO BID 07/05/19 Multivitamin [Multiple Vitamins] 1 each PO DAILY 07/05/19 Review of Systems - Review of Systems Constitutional: reports: Lethargy, Weakness Eyes: reports: No Symptoms HENT: reports: No Symptoms Neck: reports: No Symptoms Cardiovascular: reports: Shortness of Breath Respiratory: reports: Exercise Intolerance, SOB on Exertion Gastrointestinal: reports: No Symptoms Genitourinary: reports: No Symptoms Breasts: reports: No Symptoms Reported Musculoskeletal: reports: Muscle Cramps, Muscle Weakness Neurological: reports: Tremors, Weakness Physical Exam Vital Signs: Vital Signs Temperature 100.7 F H 07/08/19 18:00 Pulse Rate 83 07/08/19 18:00 Respiratory Rate 18 07/08/19 18:00 Blood Pressure 138/82 07/08/19 18:00 O2 Sat by Pulse Oximetry (%) 98 07/08/19 09:00 Constitutional: Yes: Anxious Eyes: Yes: EOM Intact HENT: Yes: Normocephalic Neck: Yes: Trachea Midline Cardiovascular: Yes: Tachycardia Respiratory: Yes: CTA Bilaterally Gastrointestinal: Yes: Normal Bowel Sounds ...Rectal Exam: Yes: Deferred Renal/: Yes: WNL Musculoskeletal: Yes: Muscle Weakness Edema: No Neurological: Yes: Alert, Oriented Labs: CBC, BMP 07/08/19 07:00 07/08/19 07:00 Problem List - Problems (1) B-cell lymphoma Problems reviewed: Yes Code(s): C85.10 - UNSPECIFIED B-CELL LYMPHOMA, UNSPECIFIED SITE (2) Bacteremia Problems reviewed: Yes Code(s): R78.81 - BACTEREMIA (3) Hyperthyroidism Problems reviewed: Yes Code(s): E05.90 - THYROTOXICOSIS, UNSP WITHOUT THYROTOXIC CRISIS OR STORM (4) Allergic drug rash Problems reviewed: Yes Code(s): L27.0 - GEN SKIN ERUPTION DUE TO DRUGS AND MEDS TAKEN INTERNALLY Assessment/Plan Current Active Problems B-cell lymphoma (Acute) Bacteremia (Acute) COPD (chronic obstructive pulmonary disease) (Acute) Fever (Acute) Hyperthyroidism (Acute) Sepsis (Acute) Abnormal Lab Results 07/08/19 07/08/19 07:00 07:00 MCV 79.8 L Neutrophils % 33.8 L D Neutrophils % (Manual) 32.3 L Lymphocytes % 50.9 H D Lymphocytes % (Manual) 40.4 H D Monocytes % 13.7 H Monocytes % (Manual) 11 H Chloride 109 H Anion Gap 5 L Calcium 8.1 L Total Protein 5.7 L Albumin 2.3 L Laboratory Results - last 24 hr 07/08/19 07/08/19 07:00 07:00 WBC 9.7 RBC 4.26 Hgb 11.3 Hct 34.0 MCV 79.8 L MCH 26.5 MCHC 33.2 RDW 14.5 Plt Count 257 MPV 8.4 Absolute Neuts (auto) 3.3 Neutrophils % 33.8 L D Neutrophils % (Manual) 32.3 L Band Neutrophils % 9.1 Lymphocytes % 50.9 H D Lymphocytes % (Manual) 40.4 H D Monocytes % 13.7 H Monocytes % (Manual) 11 H Eosinophils % 0.7 D Eosinophils % (Manual) 1.0 D Basophils % 0.9 Basophils % (Manual) 0.0 Myelocytes % (Man) 0 Promyelocytes % (Man) 0 Blast Cells % (Manual) 0 Nucleated RBC % 0 Metamyelocytes 0 Hypochromia 0 Platelet Estimate Normal Platelet Comment Present Polychromasia 0 Poikilocytosis 1+ Anisocytosis 1+ Microcytosis 1+ Macrocytosis 0 Spherocytes 1+ Target Cells 1+ Ovalocytes 1+ Zach Cells 1+ Sodium 139 Potassium 3.5 Chloride 109 H Carbon Dioxide 26 Anion Gap 5 L BUN 9.7 Creatinine 0.8 Est GFR (CKD-EPI)AfAm 93.53 Est GFR (CKD-EPI)NonAf 80.70 Random Glucose 92 Calcium 8.1 L Total Bilirubin 0.8 AST 18 ALT 25 Alkaline Phosphatase 108 Total Protein 5.7 L Albumin 2.3 L Laboratory Tests 07/07/19 07:59 TSH 1.41 plan: methimazole 5mg daily taper to normalized tsh once tsh above 4.0 stop methimazole and repeat tsh as outpatient ck free t4
[2019-07-09] MEDS: DEXTROSE 5%-0.45% SALINE 1,000 ML IV SCH ×2 (02:50→12:24)
[2019-07-09] MEDS: ACETAMINOPHEN 325 MG TABLET (FP) PO PRN (02:52)
[2019-07-09] MEDS ORDERED: DEXTROSE 5%-WATER 100 ML IVPB ONE (09:18)
[2019-07-09] MEDS: CEFTRIAXONE 2 GM in DEXTROSE 5%-WATER 100 ML IVPB SCH (09:28)
[2019-07-09] MEDS: GABAPENTIN 100 MG CAPSULE PO SCH ×2 (09:28→21:51)
[2019-07-09] MEDS: METHIMAZOLE 5 MG TABLET (FP) PO SCH (09:29)
--- NOTE | 2019-07-09 13:52 | PN ---
Progress Note, Physician History of Present Illness: feeling better repeat blood cx pending - Current Medication List Current Medications: Active Medications Acetaminophen (Tylenol -) 650 mg PO Q6H PRN PRN Reason: FEVER AND PAIN Last Admin: 07/09/19 02:52 Dose: 650 mg Gabapentin (Neurontin -) 100 mg PO BID [facility] Last Admin: 07/09/19 09:28 Dose: 100 mg Dextrose/Sodium Chloride (D5-1/2ns -) 1,000 mls @ 75 mls/hr IV ASDIR TEA Last Admin: 07/09/19 12:24 Dose: 75 mls/hr Ceftriaxone Sodium 2 gm/ (Dextrose) 100 mls @ 200 mls/hr IVPB DAILY [facility]; Protocol Last Admin: 07/09/19 09:28 Dose: 200 mls/hr Methimazole (Tapazole -) 5 mg PO DAILY [facility] Last Admin: 07/09/19 09:29 Dose: 5 mg - Objective Vital Signs: Vital Signs Temperature 98.5 F 07/09/19 10:00 Pulse Rate 88 07/09/19 10:00 Respiratory Rate 18 07/09/19 10:00 Blood Pressure 111/74 07/09/19 10:00 O2 Sat by Pulse Oximetry (%) 95 07/09/19 09:00 Constitutional: Yes: No Distress, Calm Cardiovascular: Yes: S1, S2 Respiratory: Yes: Regular, CTA Bilaterally Gastrointestinal: Yes: Normal Bowel Sounds, Soft Musculoskeletal: Yes: WNL Extremities: Yes: WNL Neurological: Yes: Alert, Oriented Psychiatric: Yes: Alert, Oriented Labs: CBC, BMP 07/08/19 07:00 07/08/19 07:00 INR, PTT INR 1.18 (0.83-1.09) H 07/05/19 14:53 Assessment/Plan roblem List - Problems (1) B-cell lymphoma Code(s): C85.10 - UNSPECIFIED B-CELL LYMPHOMA, UNSPECIFIED SITE (2) Bacteremia Code(s): R78.81 - BACTEREMIA (3) COPD (chronic obstructive pulmonary disease) Code(s): J44.9 - CHRONIC OBSTRUCTIVE PULMONARY DISEASE, UNSPECIFIED (4) Fever Code(s): R50.9 - FEVER, UNSPECIFIED (5) Hyperthyroidism Code(s): E05.90 - THYROTOXICOSIS, UNSP WITHOUT THYROTOXIC CRISIS OR STORM (6) Sepsis Code(s): A41.9 - SEPSIS, UNSPECIFIED ORGANISM Assessment/Plan Gram negative Bacteremia UTI Sepsis Hx of B cell lymphoma plan await for repeat blood cx continue abx rest as per the team
--- NOTE | 2019-07-09 22:55 | PN ---
Progress Note, Physician History of Present Illness: No further temp - Current Medication List Current Medications: Active Medications Acetaminophen (Tylenol -) 650 mg PO Q6H PRN PRN Reason: FEVER AND PAIN Last Admin: 07/09/19 02:52 Dose: 650 mg Gabapentin (Neurontin -) 100 mg PO BID [facility] Last Admin: 07/09/19 21:51 Dose: 100 mg Dextrose/Sodium Chloride (D5-1/2ns -) 1,000 mls @ 75 mls/hr IV ASDIR [facility] Last Admin: 07/09/19 12:24 Dose: 75 mls/hr Ceftriaxone Sodium 2 gm/ (Dextrose) 100 mls @ 200 mls/hr IVPB DAILY [facility]; Protocol Last Admin: 07/09/19 09:28 Dose: 200 mls/hr Methimazole (Tapazole -) 5 mg PO DAILY [facility] Last Admin: 07/09/19 09:29 Dose: 5 mg - Objective Vital Signs: Vital Signs Temperature 98.8 F 07/09/19 21:54 Pulse Rate 80 07/09/19 18:00 Respiratory Rate 18 07/09/19 18:00 Blood Pressure 131/80 07/09/19 18:00 O2 Sat by Pulse Oximetry (%) 95 07/09/19 09:00 Neck: Yes: WNL, Supple Cardiovascular: Yes: WNL, Regular Rate and Rhythm Respiratory: Yes: WNL, Regular, CTA Bilaterally Gastrointestinal: Yes: WNL, Normal Bowel Sounds, Soft Labs: CBC, BMP 07/08/19 07:00 07/08/19 07:00 INR, PTT INR 1.18 (0.83-1.09) H 07/05/19 14:53 Problem List - Problems (1) Sepsis Assessment/Plan: Due to Ecoli Cont IV ceftriaxone Urine culture/BC (+) for Ecoli Lactic acid now normal Repeat BC pending but negative to date Code(s): A41.9 - SEPSIS, UNSPECIFIED ORGANISM (2) Bacteremia Assessment/Plan: Urine culture/BC (+) for Ecoli Cont IV ceftriaxone Code(s): R78.81 - BACTEREMIA (3) Hyperthyroidism Assessment/Plan: Decrease dose of tapizole and taper TSH was normal Endo consult noted Code(s): E05.90 - THYROTOXICOSIS, UNSP WITHOUT THYROTOXIC CRISIS OR STORM (4) COPD (chronic obstructive pulmonary disease) Assessment/Plan: CXR shows COPD Code(s): J44.9 - CHRONIC OBSTRUCTIVE PULMONARY DISEASE, UNSPECIFIED (5) B-cell lymphoma Code(s): C85.10 - UNSPECIFIED B-CELL LYMPHOMA, UNSPECIFIED SITE
[2019-07-10] MEDS: DEXTROSE 5%-0.45% SALINE 1,000 ML IV SCH ×2 (03:17→21:34)
[2019-07-10] MEDS ORDERED: DEXTROSE 5%-WATER 100 ML IVPB ONE ×2 (10:20→10:34)
[2019-07-10] MEDS ORDERED: PT OWN MED DRAWER 7, Y5N ONE (10:35)
[2019-07-10] MEDS: CEFTRIAXONE 2 GM in DEXTROSE 5%-WATER 100 ML IVPB SCH (10:36)
[2019-07-10] MEDS: GABAPENTIN 100 MG CAPSULE PO SCH ×2 (10:37→21:34)
[2019-07-10] MEDS: METHIMAZOLE 5 MG TABLET (FP) PO SCH (10:37)
--- NOTE | 2019-07-10 12:24 | PN ---
Progress Note, Physician History of Present Illness: stable no new issues - Current Medication List Current Medications: Active Medications Acetaminophen (Tylenol -) 650 mg PO Q6H PRN PRN Reason: FEVER AND PAIN Last Admin: 07/09/19 02:52 Dose: 650 mg Gabapentin (Neurontin -) 100 mg PO BID [facility] [place] Last Admin: 07/10/19 10:37 Dose: 100 mg Dextrose/Sodium Chloride (D5-1/2ns -) 1,000 mls @ 75 mls/hr IV ASDIR [facility] Last Admin: 07/10/19 03:17 Dose: 75 mls/hr Ceftriaxone Sodium 2 gm/ (Dextrose) 100 mls @ 200 mls/hr IVPB DAILY [facility]; Protocol Last Admin: 07/10/19 10:36 Dose: 200 mls/hr Methimazole (Tapazole -) 5 mg PO DAILY [facility] Last Admin: 07/10/19 10:37 Dose: 5 mg - Objective Vital Signs: Vital Signs Temperature 98.9 F 07/10/19 06:00 Pulse Rate 75 07/10/19 06:00 Respiratory Rate 18 07/10/19 06:00 Blood Pressure 117/67 07/10/19 06:00 O2 Sat by Pulse Oximetry (%) 95 07/09/19 09:00 Constitutional: Yes: No Distress, Calm Cardiovascular: Yes: S1, S2 Respiratory: Yes: Regular, CTA Bilaterally Gastrointestinal: Yes: Normal Bowel Sounds, Soft Musculoskeletal: Yes: WNL Extremities: Yes: WNL Neurological: Yes: Alert, Oriented Psychiatric: Yes: Alert, Oriented Labs: CBC, BMP 07/08/19 07:00 07/08/19 07:00 INR, PTT INR 1.18 (0.83-1.09) H 07/05/19 14:53 Assessment/Plan roblem List - Problems (1) B-cell lymphoma Code(s): C85.10 - UNSPECIFIED B-CELL LYMPHOMA, UNSPECIFIED SITE (2) Bacteremia Code(s): R78.81 - BACTEREMIA (3) COPD (chronic obstructive pulmonary disease) Code(s): J44.9 - CHRONIC OBSTRUCTIVE PULMONARY DISEASE, UNSPECIFIED (4) Fever Code(s): R50.9 - FEVER, UNSPECIFIED (5) Hyperthyroidism Code(s): E05.90 - THYROTOXICOSIS, UNSP WITHOUT THYROTOXIC CRISIS OR STORM (6) Sepsis Code(s): A41.9 - SEPSIS, UNSPECIFIED ORGANISM Assessment/Plan Gram negative Bacteremia UTI Sepsis Hx of B cell lymphoma plan ct abx rest as per the team
--- NOTE | 2019-07-10 23:36 | PN ---
Progress Note, Physician - Current Medication List Current Medications: Active Medications Acetaminophen (Tylenol -) 650 mg PO Q6H PRN PRN Reason: FEVER AND PAIN Last Admin: 07/09/19 02:52 Dose: 650 mg Gabapentin (Neurontin -) 100 mg PO BID [facility] Last Admin: 07/10/19 21:34 Dose: 100 mg Dextrose/Sodium Chloride (D5-1/2ns -) 1,000 mls @ 75 mls/hr IV ASDIR [facility] Last Admin: 07/10/19 21:34 Dose: 75 mls/hr Ceftriaxone Sodium 2 gm/ (Dextrose) 100 mls @ 200 mls/hr IVPB DAILY [facility]; Protocol Last Admin: 07/10/19 10:36 Dose: 200 mls/hr Methimazole (Tapazole -) 5 mg PO DAILY [facility] Last Admin: 07/10/19 10:37 Dose: 5 mg - Objective Vital Signs: Vital Signs Temperature 98.1 F 07/10/19 18:00 Pulse Rate 77 07/10/19 18:00 Respiratory Rate 18 07/10/19 18:00 Blood Pressure 117/64 07/10/19 18:00 O2 Sat by Pulse Oximetry (%) 95 07/09/19 09:00 Labs: CBC, BMP 07/08/19 07:00 07/08/19 07:00 INR, PTT INR 1.18 (0.83-1.09) H 07/05/19 14:53 Problem List - Problems (1) Sepsis Code(s): A41.9 - SEPSIS, UNSPECIFIED ORGANISM (2) Bacteremia Code(s): R78.81 - BACTEREMIA (3) Hyperthyroidism Code(s): E05.90 - THYROTOXICOSIS, UNSP WITHOUT THYROTOXIC CRISIS OR STORM (4) COPD (chronic obstructive pulmonary disease) Code(s): J44.9 - CHRONIC OBSTRUCTIVE PULMONARY DISEASE, UNSPECIFIED (5) B-cell lymphoma Code(s): C85.10 - UNSPECIFIED B-CELL LYMPHOMA, UNSPECIFIED SITE
[2019-07-11 08:11] LABS: THYROID STIM IMMUNOGLOBULIN <0.10 IU/L (0.00-0.55)
[2019-07-11] MEDS ORDERED: DEXTROSE 5%-WATER 100 ML IVPB ONE (10:14)
[2019-07-11] MEDS ORDERED: PT OWN MED DRAWER 7, Y5N ONE ×2 (10:14→10:41)
[2019-07-11] MEDS: CEFTRIAXONE 2 GM in DEXTROSE 5%-WATER 100 ML IVPB SCH (10:20)
[2019-07-11] MEDS: GABAPENTIN 100 MG CAPSULE PO SCH ×2 (10:21→22:36)
[2019-07-11] MEDS: METHIMAZOLE 5 MG TABLET (FP) PO SCH (10:21)
--- NOTE | 2019-07-11 11:01 | PN ---
Progress Note, Physician History of Present Illness: stable doing well no new issues - Current Medication List Current Medications: Active Medications Acetaminophen (Tylenol -) 650 mg PO Q6H PRN PRN Reason: FEVER AND PAIN Last Admin: 07/09/19 02:52 Dose: 650 mg Gabapentin (Neurontin -) 100 mg PO BID [facility] Last Admin: 07/11/19 10:21 Dose: 100 mg Dextrose/Sodium Chloride (D5-1/2ns -) 1,000 mls @ 75 mls/hr IV ASDIR [facility] Last Admin: 07/10/19 21:34 Dose: 75 mls/hr Ceftriaxone Sodium 2 gm/ (Dextrose) 100 mls @ 200 mls/hr IVPB DAILY [facility]; Protocol Last Admin: 07/11/19 10:20 Dose: 200 mls/hr Methimazole (Tapazole -) 5 mg PO DAILY [facility] Last Admin: 07/11/19 10:21 Dose: 5 mg - Objective Vital Signs: Vital Signs Temperature 98.5 F 07/11/19 10:16 Pulse Rate 84 07/11/19 10:16 Respiratory Rate 07/11/19 10:16 Blood Pressure 111/69 07/11/19 10:16 O2 Sat by Pulse Oximetry (%) 95 07/10/19 21:00 Constitutional: Yes: No Distress, Calm Cardiovascular: Yes: S1, S2 Respiratory: Yes: Regular, CTA Bilaterally Gastrointestinal: Yes: Normal Bowel Sounds, Soft Musculoskeletal: Yes: WNL Extremities: Yes: WNL Neurological: Yes: Alert, Oriented Psychiatric: Yes: Alert, Oriented Labs: CBC, BMP 07/08/19 07:00 07/08/19 07:00 INR, PTT INR 1.18 (0.83-1.09) H 07/05/19 14:53 Assessment/Plan roblem List - Problems (1) B-cell lymphoma Code(s): C85.10 - UNSPECIFIED B-CELL LYMPHOMA, UNSPECIFIED SITE (2) Bacteremia Code(s): R78.81 - BACTEREMIA (3) COPD (chronic obstructive pulmonary disease) Code(s): J44.9 - CHRONIC OBSTRUCTIVE PULMONARY DISEASE, UNSPECIFIED (4) Fever Code(s): R50.9 - FEVER, UNSPECIFIED (5) Hyperthyroidism Code(s): E05.90 - THYROTOXICOSIS, UNSP WITHOUT THYROTOXIC CRISIS OR STORM (6) Sepsis Code(s): A41.9 - SEPSIS, UNSPECIFIED ORGANISM Assessment/Plan Gram negative Bacteremia UTI Sepsis Hx of B cell lymphoma plan ct abx rest as per the team
[2019-07-11] MEDS: DEXTROSE 5%-0.45% SALINE 1,000 ML IV SCH ×2 (11:18→23:33)
--- NOTE | 2019-07-11 23:43 | PN ---
Progress Note, Physician History of Present Illness: No further temp - Current Medication List Current Medications: Active Medications Acetaminophen (Tylenol -) 650 mg PO Q6H PRN PRN Reason: FEVER AND PAIN Last Admin: 07/09/19 02:52 Dose: 650 mg Gabapentin (Neurontin -) 100 mg PO BID [facility] Last Admin: 07/11/19 22:36 Dose: 100 mg Dextrose/Sodium Chloride (D5-1/2ns -) 1,000 mls @ 75 mls/hr IV ASDIR TEA Last Admin: 07/11/19 23:33 Dose: 75 mls/hr Ceftriaxone Sodium 2 gm/ (Dextrose) 100 mls @ 200 mls/hr IVPB DAILY [facility]; Protocol Last Admin: 07/11/19 10:20 Dose: 200 mls/hr Methimazole (Tapazole -) 5 mg PO DAILY TEA Last Admin: 07/11/19 10:21 Dose: 5 mg - Objective Vital Signs: Vital Signs Temperature 98.7 F 07/11/19 18:00 Pulse Rate 77 07/11/19 18:00 Respiratory Rate 20 07/11/19 18:00 Blood Pressure 113/74 07/11/19 18:00 O2 Sat by Pulse Oximetry (%) 96 07/11/19 10:00 Neck: Yes: WNL, Supple Cardiovascular: Yes: WNL, Regular Rate and Rhythm Respiratory: Yes: WNL, Regular, CTA Bilaterally Gastrointestinal: Yes: WNL, Normal Bowel Sounds, Soft Labs: CBC, BMP 07/08/19 07:00 07/08/19 07:00 INR, PTT INR 1.18 (0.83-1.09) H 07/05/19 14:53 Problem List - Problems (1) Sepsis Assessment/Plan: Due to Ecoli Cont IV ceftriaxone Urine culture/BC (+) for Ecoli Lactic acid now normal Repeat BC pending but negative to date Code(s): A41.9 - SEPSIS, UNSPECIFIED ORGANISM (2) Bacteremia Assessment/Plan: Urine culture/BC (+) for Ecoli Cont IV ceftriaxone Code(s): R78.81 - BACTEREMIA (3) Hyperthyroidism Assessment/Plan: Decrease dose of tapizole and taper TSH was normal Endo consult noted Code(s): E05.90 - THYROTOXICOSIS, UNSP WITHOUT THYROTOXIC CRISIS OR STORM (4) COPD (chronic obstructive pulmonary disease) Assessment/Plan: CXR shows COPD Code(s): J44.9 - CHRONIC OBSTRUCTIVE PULMONARY DISEASE, UNSPECIFIED (5) B-cell lymphoma Code(s): C85.10 - UNSPECIFIED B-CELL LYMPHOMA, UNSPECIFIED SITE
[2019-07-12 08:50] LABS: BASO % 0.6 % (0-2.0); EOS % 1.6 % (0-4.5); HEMATOCRIT 37.6 % (32.4-45.2); HEMOGLOBIN 12.4 GM/dL (10.7-15.3); LYMPH % 58.1 % (8-40); MCH 26.7 pg (25.7-33.7); MEAN PLT VOLUME 7.6 fl (7.5-11.1); MONO % 8.6 % (3.8-10.2); NEUT % 31.1 % (42.8-82.8); PLATELET COUNT 490 K/MM3 (134-434); RBC 4.64 M/mm3 (3.60-5.2); RDW 14.9 % (11.6-15.6); WHITE BLOOD COUNT 10.2 K/mm3 (4.0-10.0)
[2019-07-12 09:13] LABS: ALBUMIN 2.8 g/dl (3.4-5.0); BILIRUBIN,TOTAL 0.6 mg/dL (0.2-1); BLOOD UREA NITROGEN 16.8 mg/dL (7-18); CALCIUM 8.8 mg/dL (8.5-10.1); CREATININE 0.8 mg/dL (0.55-1.3); POTASSIUM 4.6 mmol/L (3.5-5.1); TOT PROT 7.2 g/dl (6.4-8.2)
[2019-07-12] MEDS ORDERED: PT OWN MED DRAWER 7, Y5N ONE ×2 (09:31→09:59)
[2019-07-12] MEDS ORDERED: DEXTROSE 5%-WATER 100 ML IVPB ONE (09:32)
[2019-07-12] MEDS: GABAPENTIN 100 MG CAPSULE PO SCH ×2 (09:37→23:39)
[2019-07-12] MEDS: METHIMAZOLE 5 MG TABLET (FP) PO SCH (09:37)
[2019-07-12] MEDS: CEFTRIAXONE 2 GM in DEXTROSE 5%-WATER 100 ML IVPB SCH (09:38)
--- NOTE | 2019-07-12 10:52 | PN ---
Progress Note, Physician History of Present Illness: stable no new issues - Current Medication List Current Medications: Active Medications Acetaminophen (Tylenol -) 650 mg PO Q6H PRN PRN Reason: FEVER AND PAIN Last Admin: 07/09/19 02:52 Dose: 650 mg Gabapentin (Neurontin -) 100 mg PO BID [facility] Last Admin: 07/12/19 09:37 Dose: 100 mg Dextrose/Sodium Chloride (D5-1/2ns -) 1,000 mls @ 75 mls/hr IV ASDIR TEA Last Admin: 07/11/19 23:33 Dose: 75 mls/hr Ceftriaxone Sodium 2 gm/ (Dextrose) 100 mls @ 200 mls/hr IVPB DAILY [facility]; Protocol Last Admin: 07/12/19 09:38 Dose: 200 mls/hr Methimazole (Tapazole -) 5 mg PO DAILY TEA Last Admin: 07/12/19 09:37 Dose: 5 mg - Objective Vital Signs: Vital Signs Temperature 98.7 F 07/12/19 09:30 Pulse Rate 90 07/12/19 09:30 Respiratory Rate 20 07/12/19 09:30 Blood Pressure 114/78 07/12/19 09:30 O2 Sat by Pulse Oximetry (%) 97 07/11/19 21:00 Constitutional: Yes: No Distress, Calm Cardiovascular: Yes: S1, S2 Respiratory: Yes: Regular, CTA Bilaterally Gastrointestinal: Yes: Normal Bowel Sounds, Soft Musculoskeletal: Yes: WNL Extremities: Yes: WNL Neurological: Yes: Alert, Oriented Psychiatric: Yes: Alert, Oriented Labs: CBC, BMP 07/12/19 07:48 07/12/19 07:48 INR, PTT INR 1.18 (0.83-1.09) H 07/05/19 14:53 Assessment/Plan roblem List - Problems (1) B-cell lymphoma Code(s): C85.10 - UNSPECIFIED B-CELL LYMPHOMA, UNSPECIFIED SITE (2) Bacteremia Code(s): R78.81 - BACTEREMIA (3) COPD (chronic obstructive pulmonary disease) Code(s): J44.9 - CHRONIC OBSTRUCTIVE PULMONARY DISEASE, UNSPECIFIED (4) Fever Code(s): R50.9 - FEVER, UNSPECIFIED (5) Hyperthyroidism Code(s): E05.90 - THYROTOXICOSIS, UNSP WITHOUT THYROTOXIC CRISIS OR STORM (6) Sepsis Code(s): A41.9 - SEPSIS, UNSPECIFIED ORGANISM Assessment/Plan Gram negative Bacteremia UTI Sepsis Hx of B cell lymphoma plan ct abx rest as per the team will deescalte tomorrow
[2019-07-12 11:21] LABS: ANISOCYTOSIS 0; MACROCYTOSIS 0; PLATELET ESTIMATE INCREASED
[2019-07-12] MEDS: DEXTROSE 5%-0.45% SALINE 1,000 ML IV SCH (14:56)
--- NOTE | 2019-07-12 22:50 | PN ---
Progress Note, Physician History of Present Illness: No further temp - Current Medication List Current Medications: Active Medications Acetaminophen (Tylenol -) 650 mg PO Q6H PRN PRN Reason: FEVER AND PAIN Last Admin: 07/09/19 02:52 Dose: 650 mg Gabapentin (Neurontin -) 100 mg PO BID [facility] [place] Last Admin: 07/12/19 09:37 Dose: 100 mg Dextrose/Sodium Chloride (D5-1/2ns -) 1,000 mls @ 75 mls/hr IV ASDIR TEA Last Admin: 07/12/19 14:56 Dose: 75 mls/hr Ceftriaxone Sodium 2 gm/ (Dextrose) 100 mls @ 200 mls/hr IVPB DAILY [facility] [place]; Protocol Last Admin: 07/12/19 09:38 Dose: 200 mls/hr Methimazole (Tapazole -) 5 mg PO DAILY TEA Last Admin: 07/12/19 09:37 Dose: 5 mg - Objective Vital Signs: Vital Signs Temperature 97.7 F 07/12/19 16:00 Pulse Rate 75 07/12/19 16:00 Respiratory Rate 07/12/19 16:00 Blood Pressure 117/71 07/12/19 16:00 O2 Sat by Pulse Oximetry (%) 97 07/12/19 10:30 Cardiovascular: Yes: WNL, Regular Rate and Rhythm Respiratory: Yes: WNL, Regular, CTA Bilaterally Gastrointestinal: Yes: WNL, Normal Bowel Sounds, Soft, Abdomen, Obese Labs: CBC, BMP 07/12/19 07:48 07/12/19 07:48 INR, PTT INR 1.18 (0.83-1.09) H 07/05/19 14:53 Problem List - Problems (1) Sepsis Assessment/Plan: Due to Ecoli/UTI Cont IV ceftriaxone Urine culture/BC (+) for Ecoli Lactic acid now normal Repeat BC pending but negative to date Probable dc planning in am Code(s): A41.9 - SEPSIS, UNSPECIFIED ORGANISM (2) Bacteremia Assessment/Plan: Urine culture/BC (+) for Ecoli Cont IV ceftriaxone Code(s): R78.81 - BACTEREMIA (3) Hyperthyroidism Assessment/Plan: Decrease dose of tapizole and taper TSH was normal Endo consult noted Code(s): E05.90 - THYROTOXICOSIS, UNSP WITHOUT THYROTOXIC CRISIS OR STORM (4) COPD (chronic obstructive pulmonary disease) Assessment/Plan: CXR shows COPD Code(s): J44.9 - CHRONIC OBSTRUCTIVE PULMONARY DISEASE, UNSPECIFIED (5) B-cell lymphoma Code(s): C85.10 - UNSPECIFIED B-CELL LYMPHOMA, UNSPECIFIED SITE
[2019-07-13] MEDS ORDERED: PT OWN MED DRAWER 7, Y5N ONE (09:16)
[2019-07-13] MEDS ORDERED: DEXTROSE 5%-WATER 100 ML IVPB ONE (09:16)
[2019-07-13] MEDS: CEFTRIAXONE 2 GM in DEXTROSE 5%-WATER 100 ML IVPB SCH (09:29)
[2019-07-13] MEDS: METHIMAZOLE 5 MG TABLET (FP) PO SCH (09:30)
[2019-07-13] MEDS: GABAPENTIN 100 MG CAPSULE PO SCH (09:31)
[2019-07-13 09:32] VITALS: BP 128/86; PULSE 96; TEMP 98.6
--- NOTE | 2019-07-13 12:02 | PN ---
Progress Note, Physician History of Present Illness: stable no new issues - Current Medication List Current Medications: Active Medications Acetaminophen (Tylenol -) 650 mg PO Q6H PRN PRN Reason: FEVER AND PAIN Last Admin: 07/09/19 02:52 Dose: 650 mg Gabapentin (Neurontin -) 100 mg PO BID [facility] Last Admin: 07/13/19 09:31 Dose: 100 mg Methimazole (Tapazole -) 5 mg PO DAILY [facility] Last Admin: 07/13/19 09:30 Dose: 5 mg - Objective Vital Signs: Vital Signs Temperature 98.6 F 07/13/19 09:31 Pulse Rate 96 H 07/13/19 09:31 Respiratory Rate 18 07/13/19 09:31 Blood Pressure 128/86 07/13/19 09:31 O2 Sat by Pulse Oximetry (%) 96 07/13/19 09:38 Constitutional: Yes: No Distress, Calm Cardiovascular: Yes: S1, S2 Respiratory: Yes: Regular, CTA Bilaterally Gastrointestinal: Yes: Normal Bowel Sounds, Soft Musculoskeletal: Yes: WNL Extremities: Yes: WNL Neurological: Yes: Alert, Oriented Psychiatric: Yes: Alert, Oriented Labs: CBC, BMP 07/12/19 07:48 07/12/19 07:48 INR, PTT INR 1.18 (0.83-1.09) H 07/05/19 14:53 Assessment/Plan roblem List - Problems (1) B-cell lymphoma Code(s): C85.10 - UNSPECIFIED B-CELL LYMPHOMA, UNSPECIFIED SITE (2) Bacteremia Code(s): R78.81 - BACTEREMIA (3) COPD (chronic obstructive pulmonary disease) Code(s): J44.9 - CHRONIC OBSTRUCTIVE PULMONARY DISEASE, UNSPECIFIED (4) Fever Code(s): R50.9 - FEVER, UNSPECIFIED (5) Hyperthyroidism Code(s): E05.90 - THYROTOXICOSIS, UNSP WITHOUT THYROTOXIC CRISIS OR STORM (6) Sepsis Code(s): A41.9 - SEPSIS, UNSPECIFIED ORGANISM Assessment/Plan Gram negative Bacteremia UTI Sepsis Hx of B cell lymphoma plan will stop abx rest as per the team
[2019-07-13 14:49] VITALS: BMI 23.3
== END 2019-07-13 15:02 | disposition home or self-care (01) | DRG 720 ==
LOC: JER 13:57 → JERBED 17:17 → J5S 19:58
PROVIDERS: ADMIT Internal Medicine; ATTEND Internal Medicine
DX: A41.51 Sepsis due to Escherichia coli [E. coli] (principal); J44.9 Chronic obstructive pulmonary disease, unspecified; E05.90 Thyrotoxicosis, unspecified without thyrotoxic crisis or storm; R50.9 Fever, unspecified; N39.0 Urinary tract infection, site not specified; D72.829 Elevated white blood cell count, unspecified; Z85.72 Personal history of non-Hodgkin lymphomas
CPT/HCPCS: 36415; 71046-TC-FY; 80053; 81003; 83605; 83615; 84439; 84443; 84445; 84481; 85025; 85610; 85730; 87040; 87086; 87186; 87804; 99284-25; J7030

== ENCOUNTER → 2023-03-09 | Day surgery (SDC) | payer OTHER | END | disposition home or self-care (01) | LOC: JRADUS-SUR 10:11 | PROVIDERS: ATTEND Internal Medicine Hematology & Oncology | PROC: 07D63ZX Extraction of Left Axillary Lymphatic, Percutaneous Approach, Diagnostic (ICD-10-PCS; principal; 2023-03-09) | DX: D36.0 Benign neoplasm of lymph nodes (principal) | CPT/HCPCS: 19083; 87899; 88305-TC ==

== ENCOUNTER 2023-05-01 18:15 | Emergency (ER) | payer OTHER ==
[2023-05-01 18:21] VITALS: BMI 22.1
[2023-05-01] MEDS ORDERED: ACETAMINOPHEN 325 MG TABLET (FP) PO ONE (19:30)
[2023-05-01] MEDS ORDERED: guaiFENesin 200 MG/10 ML 10 ML UNIT-DOSE CUPS PO ONE (19:30)
[2023-05-01] MEDS ORDERED: guaiFENesin 200 MG/10 ML 10 ML UNIT-DOSE CUPS ONE (19:33)
[2023-05-01] MEDS ORDERED: ACETAMINOPHEN 325 MG TABLET (FP) ONE (19:34)
[2023-05-01 20:10] LABS: BASO % 0.7 % (0-2.0); EOS % 2.3 % (0-4.5); HEMATOCRIT 34.3 % (32.4-45.2); HEMOGLOBIN 11.1 GM/dL (10.7-15.3); LYMPH % 25.3 % (8-40); MCH 24.3 pg (25.7-33.7); MCHC 32.4 g/dl (32.0-36.0); MEAN CELL VOLUME 75.1 fl (80-96); MEAN PLT VOLUME 7.1 fl (7.5-11.1); MONO % 13.3 % (3.8-10.2); NEUT % 58.4 % (42.8-82.8); PLATELET COUNT 472 10^3/uL (134-434); RBC 4.57 M/mm3 (3.60-5.2); RDW 17.3 % (11.6-15.6); WHITE BLOOD COUNT 10.1 K/mm3 (4.0-10.0)
[2023-05-01 20:24] LABS: POTASSIUM 4.5 mmol/L (3.5-5.1)
[2023-05-01 20:26] LABS: CALCIUM 8.7 mg/dL (8.5-10.1)
[2023-05-01 20:27] LABS: ALBUMIN 2.5 g/dl (3.4-5.0); BLOOD UREA NITROGEN 10.5 mg/dL (7-18)
[2023-05-01 20:30] LABS: CREATININE 0.7 mg/dL (0.55-1.3)
[2023-05-01 20:31] LABS: TOT PROT 7.6 g/dl (6.4-8.2)
[2023-05-01 20:32] LABS: BILIRUBIN,TOTAL 0.3 mg/dL (0.2-1)
[2023-05-01] MEDS ORDERED: AZITHROMYCIN 250 MG TABLET PO ONE (20:35)
[2023-05-01] MEDS ORDERED: DOXYCYCLINE HYCLATE 100 MG CAPSULE PO ONE ×2 (20:36→20:41)
[2023-05-01] MEDS ORDERED: AZITHROMYCIN 250 MG TABLET ONE (20:42)
[2023-05-01 21:01] VITALS: BP 107/69; PULSE 95; RESP 16; TEMP 98.8
== END 2023-05-01 21:09 | disposition home or self-care (01) ==
LOC: JERFT 18:15 → JER 18:15
DX: R05.9 Cough, unspecified (principal); R06.00 Dyspnea, unspecified; R09.81 Nasal congestion; R09.3 Abnormal sputum; R07.9 Chest pain, unspecified; M54.9 Dorsalgia, unspecified; J18.9 Pneumonia, unspecified organism; Z20.822 Contact with and (suspected) exposure to COVID-19
CPT/HCPCS: 0241U-QW; 36415; 71046-TC-FY; 80053; 85025; 99284-25

== ENCOUNTER → 2023-08-31 | Day surgery (SDC) | payer OTHER | END | disposition home or self-care (01) | LOC: JRADUS-SUR 09:34 | PROVIDERS: ATTEND Internal Medicine Hematology & Oncology | PROC: 07B53ZX Excision of Right Axillary Lymphatic, Percutaneous Approach, Diagnostic (ICD-10-PCS; principal; 2023-08-31) | DX: C85.14 Unspecified B-cell lymphoma, lymph nodes of axilla and upper limb (principal) | CPT/HCPCS: 19083; 87899; 88305-TC; A4648 ==

== ENCOUNTER 2023-10-31 06:00 | Day surgery (SDC) | payer OTHER ==
[2023-10-27 09:40] VITALS: BMI 21.8
[2023-10-31 08:07] LABS: INR 1.05 (0.83-1.09); PROTHROMBIN TIME (PATIENT) 11.9 SEC (9.7-13.0)
[2023-10-31 08:17] LABS: BASO % 1.1 % (0-2.0); EOS % 2.8 % (0-4.5); HEMOGLOBIN 11.1 GM/dL (10.7-15.3); LYMPH % 49.6 % (8-40); MCH 24.6 pg (25.7-33.7); MCHC 32.6 g/dl (32.0-36.0); MEAN CELL VOLUME 75.7 fl (80-96); MEAN PLT VOLUME 7.3 fl (7.5-11.1); MONO % 11.2 % (3.8-10.2); NEUT % 35.3 % (42.8-82.8); PLATELET COUNT 481 10^3/uL (134-434); RDW 17.6 % (11.6-15.6); WHITE BLOOD COUNT 6.2 K/mm3 (4.0-10.0)
[2023-10-31 10:40] LABS: POTASSIUM 4.7 mmol/L (3.5-5.1)
[2023-10-31 10:42] LABS: BLOOD UREA NITROGEN 21.4 mg/dL (7-18); CALCIUM 9.1 mg/dL (8.5-10.1)
[2023-10-31 10:46] LABS: CREATININE 0.7 mg/dL (0.55-1.3)
[2023-10-31] MEDS ORDERED: MIDAZOLAM HCL 2 MG/2 ML SINGLE DOSE VIAL ONE (11:43)
[2023-10-31] MEDS ORDERED: FENTANYL CITRATE/PF 50 MCG/ML VIAL ONE ×2 (11:43→11:55)
[2023-10-31] MEDS: SODIUM CHLORIDE 500 ML IV ONE (11:45)
[2023-10-31] MEDS: MIDAZOLAM HCL 2 MG/2 ML SINGLE DOSE VIAL IVPB SCH (11:46)
[2023-10-31 13:12] VITALS: RESP 18
[2023-11-01 01:51] VITALS: BP 130/70; PULSE 72; TEMP 97.8
== END 2023-10-31 14:25 | disposition home or self-care (01) ==
LOC: JRADIR 06:00
PROVIDERS: ATTEND Internal Medicine Hematology & Oncology
PROC: 0JH63WZ Insertion of Totally Implantable Vascular Access Device into Chest Subcutaneous Tissue and Fascia, Percutaneous Approach (ICD-10-PCS; principal; 2023-10-31)
DX: C85.10 Unspecified B-cell lymphoma, unspecified site (principal)
CPT/HCPCS: 36561; C1788; 36415; 80048; 84703; 85025; 85610

== ENCOUNTER 2023-11-08 10:05 | Day surgery (SDC) | payer OTHER ==
[2023-11-08] MEDS: SODIUM CHLORIDE 250 ML IV ONE (10:42)
[2023-11-08] MEDS: FOSAPREPITANT DIMEGLUMINE 150 MG in SODIUM CHLORIDE 145 ML IVPB ONE (10:43)
[2023-11-08] MEDS: ACETAMINOPHEN 325 MG TABLET (FP) PO ONE (10:49)
[2023-11-08 11:05] LABS: BASO % 0.4 % (0-2.0); EOS % 1.7 % (0-4.5); HEMATOCRIT 34.5 % (32.4-45.2); HEMOGLOBIN 10.9 GM/dL (10.7-15.3); LYMPH % 43.7 % (8-40); MCH 24.6 pg (25.7-33.7); MCHC 31.6 g/dl (32.0-36.0); MEAN CELL VOLUME 77.8 fl (80-96); MEAN PLT VOLUME 7.2 fl (7.5-11.1); MONO % 10.5 % (3.8-10.2); NEUT % 43.7 % (42.8-82.8); PLATELET COUNT 393 10^3/uL (134-434); RBC 4.44 M/mm3 (3.60-5.2); RDW 17.7 % (11.6-15.6); WHITE BLOOD COUNT 6.9 K/mm3 (4.0-10.0)
[2023-11-08 11:06] LABS: POTASSIUM 4.3 mmol/L (3.5-5.1)
[2023-11-08 11:08] LABS: BLOOD UREA NITROGEN 19.3 mg/dL (7-18); CALCIUM 9.4 mg/dL (8.5-10.1); MAGNESIUM 2.1 mg/dL (1.8-2.4)
[2023-11-08 11:09] LABS: ALBUMIN 2.8 g/dl (3.4-5.0)
[2023-11-08 11:10] LABS: URIC ACID 2.5 mg/dL (2.6-7.2)
[2023-11-08 11:11] LABS: BILIRUBIN,DIRECT 0.1 mg/dL (0.0-0.2); CREATININE 0.7 mg/dL (0.55-1.3)
[2023-11-08 11:12] LABS: PHOSPHOROUS 3.6 mg/dL (2.5-4.9); TOT PROT 8.4 g/dl (6.4-8.2)
[2023-11-08 11:14] LABS: BILIRUBIN,TOTAL 0.2 mg/dL (0.2-1)
[2023-11-08] MEDS: DEXAMETHASONE SODIUM PHOSPHATE 10 MG, DIPHENHYDRAMINE 25 MG in SODIUM CHLORIDE 100 ML IVPB ONE (11:16)
[2023-11-08] MEDS: PALONOSETRON HCL 0.25 MG/5 ML VIAL IVPUSH ONE (11:54)
[2023-11-08] MEDS: RITUXIMAB ABBS IVPB ONE (12:12)
[2023-11-08] MEDS: SODIUM CHLORIDE IVPB ONE (12:12)
[2023-11-08 14:54] VITALS: RESP 18
[2023-11-08] MEDS: DOXOrubicin HCL 50 MG/25 ML VIAL IV ONE (15:57)
[2023-11-08] MEDS: vinCRIStine SULFATE 2 MG in SODIUM CHLORIDE 25 ML IVPB ONE (16:10)
[2023-11-08] MEDS: CYCLOPHOSPHAMIDE INJECTION 1,200 MG in SODIUM CHLORIDE 250 ML IVPB ONE (16:19)
[2023-11-08] MEDS: SODIUM CHLORIDE IV ONE (17:00)
[2023-11-08] MEDS: MAGNESIUM SULFATE IV ONE (17:00)
[2023-11-08] MEDS: POTASSIUM CHLORIDE IV ONE (17:00)
[2023-11-08 18:34] VITALS: BP 90/52; PULSE 68; TEMP 98.2
[2023-11-08] MEDS: PORTA CATH FLUSH 10 ML IVPUSH PRN (18:34)
== END 2023-11-08 18:45 | disposition home or self-care (01) ==
LOC: JONCCHEMO 10:05 → J7W 10:11 → JONCCHEMO 18:45
PROVIDERS: ATTEND Internal Medicine Hematology & Oncology
PROC: 3E04305 Introduction of Other Antineoplastic into Central Vein, Percutaneous Approach (ICD-10-PCS; principal; 2023-11-08)
PROC: 3E043GC Introduction of Other Therapeutic Substance into Central Vein, Percutaneous Approach (ICD-10-PCS; 2023-11-08)
PROC: 3E0437Z Introduction of Electrolytic and Water Balance Substance into Central Vein, Percutaneous Approach (ICD-10-PCS; 2023-11-08)
DX: Z51.11 Encounter for antineoplastic chemotherapy (principal); C85.14 Unspecified B-cell lymphoma, lymph nodes of axilla and upper limb
CPT/HCPCS: 36415; 80048; 80076; 83615; 83735; 84100; 84550; 85025; 96367; 96375; 96411; 96413; 96415; 96417; J1453; J2469; J9074; J9370; Q5115

== ENCOUNTER 2023-11-09 16:50 | Day surgery (SDC) | payer OTHER ==
[2023-11-09] MEDS: PEGFILGRASTIM-CBQV (UDENYCA) 6 MG/0.6 ML SYRINGE SQ ONE (16:51)
[2023-11-09 18:57] VITALS: BP 143/68; PULSE 73; RESP 20; TEMP 98.4
== END 2023-11-09 17:05 | disposition home or self-care (01) ==
LOC: JONCCHEMO 16:50 → J7W 16:50 → JONCCHEMO 17:05
PROVIDERS: ATTEND Internal Medicine Hematology & Oncology
PROC: 3E013GC Introduction of Other Therapeutic Substance into Subcutaneous Tissue, Percutaneous Approach (ICD-10-PCS; principal; 2023-11-09)
DX: Z76.89 Persons encountering health services in other specified circumstances (principal); C85.14 Unspecified B-cell lymphoma, lymph nodes of axilla and upper limb
CPT/HCPCS: 96372; Q5111

== ENCOUNTER 2023-11-17 08:50 | Emergency (ER) | payer OTHER ==
[2023-11-17 08:59] VITALS: BP 151/77; PULSE 55; RESP 26; TEMP 97.6; BMI 22.3
[2023-11-17] MEDS ORDERED: MAG HYDROX/AL HYDROX/SIMETH 30 ML UNIT-DOSE CUP ONE (09:43)
[2023-11-17] MEDS ORDERED: SUCRALFATE 1 GM TABLET (FP) ONE (09:43)
[2023-11-17] MEDS ORDERED: FAMOTIDINE 20 MG/50 ML IVPB 20 MG/50 ML MG IVPB ONE (09:43)
[2023-11-17] MEDS ORDERED: ACETAMINOPHEN INJECTION 100 ML IVPB ONE (09:43)
[2023-11-17 09:44] LABS: EOS % 2.9 % (0-4.5); HEMATOCRIT 34.4 % (32.4-45.2); LYMPH % 44.6 % (8-40); MCH 24.7 pg (25.7-33.7); MCHC 32.1 g/dl (32.0-36.0); MEAN PLT VOLUME 7.8 fl (7.5-11.1); NEUT % 35.5 % (42.8-82.8); PLATELET COUNT 160 10^3/uL (134-434); RBC 4.46 M/mm3 (3.60-5.2); RDW 17.8 % (11.6-15.6); WHITE BLOOD COUNT 3.6 K/mm3 (4.0-10.0)
[2023-11-17 09:51] LABS: INR 0.94 (0.83-1.09); PROTHROMBIN TIME (PATIENT) 10.6 SEC (9.7-13.0)
[2023-11-17] MEDS: SODIUM CHLORIDE 0.9% 500 ML INFUS.BAG IV ONE (09:52)
[2023-11-17] MEDS: FAMOTIDINE 20 MG/50 ML IVPB 20 MG/50 ML MG IVPB ONE (09:52)
[2023-11-17] MEDS: SUCRALFATE 1 GM TABLET (FP) PO ONE (09:52)
[2023-11-17] MEDS: MAG HYDROX/AL HYDROX/SIMETH 30 ML UNIT-DOSE CUP PO ONE (09:52)
[2023-11-17] MEDS: ACETAMINOPHEN 1000 MG/100 ML BAG IVPB ONE (09:52)
[2023-11-17 09:53] LABS: ACTIVATED PTT 30.8 SECONDS (25.2-36.5)
[2023-11-17 10:27] LABS: ANISOCYTOSIS 0; MACROCYTOSIS 0
[2023-11-17 10:43] LABS: POTASSIUM 3.7 mmol/L (3.5-5.1)
[2023-11-17 10:45] LABS: BLOOD UREA NITROGEN 12.7 mg/dL (7-18); CALCIUM 9.2 mg/dL (8.5-10.1)
[2023-11-17 10:46] LABS: ALBUMIN 3.3 g/dl (3.4-5.0); MAGNESIUM 2.2 mg/dL (1.8-2.4)
[2023-11-17 10:49] LABS: CREATININE 0.7 mg/dL (0.55-1.3)
[2023-11-17 10:50] LABS: BILIRUBIN,TOTAL 0.2 mg/dL (0.2-1)
== END 2023-11-17 13:01 | disposition home or self-care (01) ==
LOC: JER 08:50
PROC: 3E033GC Introduction of Other Therapeutic Substance into Peripheral Vein, Percutaneous Approach (ICD-10-PCS; principal; 2023-11-17)
PROC: 3E033NZ Introduction of Analgesics, Hypnotics, Sedatives into Peripheral Vein, Percutaneous Approach (ICD-10-PCS; 2023-11-17)
DX: D70.1 Agranulocytosis secondary to cancer chemotherapy (principal); R07.89 Other chest pain
CPT/HCPCS: 36415; 71046-TC-FY; 80053; 83735; 84484; 85025; 85610; 85730; 93005; 93010; 99285-25; J0131

== ENCOUNTER 2023-11-29 09:49 | Day surgery (SDC) | payer OTHER ==
[2023-11-29 10:16] LABS: EOS % 0.7 % (0-4.5); HEMATOCRIT 38.6 % (32.4-45.2); HEMOGLOBIN 12.7 GM/dL (10.7-15.3); LYMPH % 31.4 % (8-40); MCHC 32.9 g/dl (32.0-36.0); MEAN PLT VOLUME 7.1 fl (7.5-11.1); MONO % 16.8 % (3.8-10.2); NEUT % 50.1 % (42.8-82.8); PLATELET COUNT 402 10^3/uL (134-434); RBC 4.89 M/mm3 (3.60-5.2); RDW 20.9 % (11.6-15.6); WHITE BLOOD COUNT 4.6 K/mm3 (4.0-10.0)
[2023-11-29] MEDS: SODIUM CHLORIDE 1,000 ML IV ONE (10:33)
[2023-11-29 10:37] LABS: CHLORIDE 107 mmol/L (98-107); POTASSIUM 4.4 mmol/L (3.5-5.1); SODIUM 139 mmol/L (136-145)
[2023-11-29 10:39] LABS: ANION GAP 2 mmol/L (4-13); CO2 30 mmol/L (21-32); MAGNESIUM 2.2 mg/dL (1.8-2.4)
[2023-11-29 10:40] LABS: CALCIUM 9.7 mg/dL (8.5-10.1); GLUCOSE,RANDOM 105 mg/dL (74-106)
[2023-11-29 10:41] LABS: ALBUMIN 3.7 g/dl (3.4-5.0)
[2023-11-29 10:42] LABS: URIC ACID 2.6 mg/dL (2.6-7.2)
[2023-11-29 10:43] LABS: BILIRUBIN,DIRECT < 0.1 mg/dL (0.0-0.2); CREATININE 0.7 mg/dL (0.55-1.3); SGOT/AST 19 U/L (15-37); SGPT/ALT 18 U/L (13-61)
[2023-11-29 10:44] LABS: PHOSPHOROUS 4.8 mg/dL (2.5-4.9); TOT PROT 7.6 g/dl (6.4-8.2)
[2023-11-29 10:45] LABS: BILIRUBIN,TOTAL 0.3 mg/dL (0.2-1)
[2023-11-29 10:46] LABS: ALK PHOS 84 U/L (45-117)
[2023-11-29 10:47] LABS: ANISOCYTOSIS 2+; LDH 187 U/L (84-246); MACROCYTOSIS 1+
[2023-11-29] MEDS: PALONOSETRON HCL 0.25 MG/5 ML VIAL IVPUSH ONE (12:07)
[2023-11-29] MEDS: ACETAMINOPHEN 325 MG TABLET (FP) PO ONE (12:08)
[2023-11-29] MEDS: FOSAPREPITANT DIMEGLUMINE 150 MG in SODIUM CHLORIDE 145 ML IVPB ONE (12:08)
[2023-11-29] MEDS: DEXAMETHASONE SODIUM PHOSPHATE 10 MG, DIPHENHYDRAMINE 25 MG in SODIUM CHLORIDE 100 ML IVPB ONE (12:43)
[2023-11-29] MEDS: RITUXIMAB ABBS IVPB ONE (13:23)
[2023-11-29] MEDS: SODIUM CHLORIDE IVPB ONE (13:23)
[2023-11-29] MEDS: DOXOrubicin HCL 50 MG/25 ML VIAL IV ONE (16:03)
[2023-11-29] MEDS: CYCLOPHOSPHAMIDE INJECTION 1,200 MG in SODIUM CHLORIDE 250 ML IVPB ONE (16:05)
[2023-11-29] MEDS: vinCRIStine SULFATE 2 MG in SODIUM CHLORIDE 25 ML IVPB ONE (16:53)
[2023-11-29] MEDS: MAGNESIUM SULFATE IN WATER 2 GM/50 ML IVPB IVPB ONE (17:00)
[2023-11-29] MEDS: SODIUM CHLORIDE 0.9%/KCL 20 MEQ/1,000 ML INFUS.BAG IV ONE (17:04)
[2023-11-29 17:43] VITALS: RESP 20; TEMP 98.1
[2023-11-29 19:06] VITALS: BP 113/60; PULSE 57
[2023-11-29] MEDS ORDERED: PORTA CATH FLUSH 10 ML IVPUSH PRN (19:06)
[2023-11-29] MEDS: PORTA CATH FLUSH 10 ML IVPUSH PRN (19:07)
== END 2023-11-29 19:08 | disposition home or self-care (01) ==
LOC: JONCCHEMO 09:49 → J7W 09:49 → JONCCHEMO 19:08
PROVIDERS: ATTEND Internal Medicine Hematology & Oncology
DX: Z51.11 Encounter for antineoplastic chemotherapy (principal); C85.14 Unspecified B-cell lymphoma, lymph nodes of axilla and upper limb
CPT/HCPCS: 36415; 80048; 80076; 83615; 83735; 84100; 84550; 85025; 96367; 96375; 96411; 96413; 96415; 96417; J1453; J2469; J9074; J9370; Q5115

== ENCOUNTER 2023-11-30 14:01 | Day surgery (SDC) | payer OTHER ==
[2023-11-30] MEDS: PEGFILGRASTIM-CBQV (UDENYCA) 6 MG/0.6 ML SYRINGE SQ ONE (13:57)
[2023-11-30 15:55] VITALS: BP 118/66; PULSE 62; RESP 18; TEMP 98.1
== END 2023-11-30 14:15 | disposition home or self-care (01) ==
LOC: JONCCHEMO 14:01 → J7W 14:03 → JONCCHEMO 14:15
PROVIDERS: ATTEND Internal Medicine Hematology & Oncology
PROC: 3E013GC Introduction of Other Therapeutic Substance into Subcutaneous Tissue, Percutaneous Approach (ICD-10-PCS; principal; 2023-11-30)
DX: C85.14 Unspecified B-cell lymphoma, lymph nodes of axilla and upper limb (principal); Z76.89 Persons encountering health services in other specified circumstances
CPT/HCPCS: 96372; Q5111

== ENCOUNTER 2023-12-21 10:41 | Day surgery (SDC) | payer OTHER ==
[2023-12-21] MEDS: SODIUM CHLORIDE 1,000 ML IV ONE (10:30)
[2023-12-21 11:28] LABS: HEMATOCRIT 39.1 % (32.4-45.2); HEMOGLOBIN 12.9 GM/dL (10.7-15.3); MCHC 32.9 g/dl (32.0-36.0); MEAN CELL VOLUME 82.1 fl (80-96); MEAN PLT VOLUME 7.8 fl (7.5-11.1); PLATELET COUNT 376 10^3/uL (134-434); RBC 4.77 M/mm3 (3.60-5.2); RDW 27.4 % (11.6-15.6); WHITE BLOOD COUNT 4.3 K/mm3 (4.0-10.0)
[2023-12-21 11:45] LABS: POTASSIUM 4.6 mmol/L (3.5-5.1)
[2023-12-21 11:47] LABS: CALCIUM 9.2 mg/dL (8.5-10.1)
[2023-12-21 11:48] LABS: ALBUMIN 3.7 g/dl (3.4-5.0); BLOOD UREA NITROGEN 15.8 mg/dL (7-18)
[2023-12-21 11:49] LABS: BILIRUBIN,DIRECT 0.1 mg/dL (0.0-0.2)
[2023-12-21 11:50] LABS: CREATININE 0.8 mg/dL (0.55-1.3)
[2023-12-21 11:51] LABS: TOT PROT 7.4 g/dl (6.4-8.2)
[2023-12-21 11:52] LABS: URIC ACID 2.5 mg/dL (2.6-7.2)
[2023-12-21 11:53] LABS: BILIRUBIN,TOTAL 0.3 mg/dL (0.2-1)
[2023-12-21 12:05] LABS: ANISOCYTOSIS 1+; MACROCYTOSIS 0
[2023-12-21] MEDS: FOSAPREPITANT DIMEGLUMINE 150 MG in SODIUM CHLORIDE 145 ML IVPB ONE (12:17)
[2023-12-21] MEDS: DEXAMETHASONE SODIUM PHOSPHATE 10 MG, DIPHENHYDRAMINE 25 MG in SODIUM CHLORIDE 100 ML IVPB ONE (12:54)
[2023-12-21] MEDS: ACETAMINOPHEN 325 MG TABLET (FP) PO ONE (12:59)
[2023-12-21] MEDS: PALONOSETRON HCL 0.25 MG/5 ML VIAL IVPUSH ONE (13:00)
[2023-12-21] MEDS: DOXOrubicin HCL 50 MG/25 ML VIAL IV ONE (16:42)
[2023-12-21] MEDS: vinCRIStine SULFATE 2 MG in SODIUM CHLORIDE 25 ML IVPB ONE (16:45)
[2023-12-21] MEDS: CYCLOPHOSPHAMIDE INJECTION 1,200 MG in SODIUM CHLORIDE 250 ML IVPB ONE (16:57)
[2023-12-21] MEDS: SODIUM CHLORIDE 0.9%/KCL 20 MEQ/1,000 ML INFUS.BAG IV ONE (16:59)
[2023-12-21 17:27] VITALS: RESP 20; TEMP 98.1
[2023-12-21] MEDS: MAGNESIUM SULFATE IN WATER 2 GM/50 ML IVPB IVPB ONE (17:32)
[2023-12-21] MEDS: PORTA CATH FLUSH 10 ML IVPUSH PRN (17:33)
[2023-12-21 18:51] VITALS: BP 113/64; PULSE 61
== END 2023-12-21 18:59 | disposition home or self-care (01) ==
LOC: EDBD → J7W 10:41 → JONCCHEMO 10:41
PROVIDERS: ATTEND Internal Medicine Hematology & Oncology
DX: Z51.11 Encounter for antineoplastic chemotherapy (principal); C85.14 Unspecified B-cell lymphoma, lymph nodes of axilla and upper limb
CPT/HCPCS: 36415; 80048; 80076; 83615; 83735; 84100; 84550; 85025; 96367; 96375; 96411; 96413; 96415; 96417; J1453; J2469; J9074; J9370; Q5119

== ENCOUNTER 2023-12-23 13:15 | Day surgery (SDC) | payer OTHER ==
[2023-12-23] MEDS: PEGFILGRASTIM-CBQV (UDENYCA) 6 MG/0.6 ML SYRINGE SQ ONE (13:22)
[2023-12-23 16:50] VITALS: BP 132/60; PULSE 56; RESP 18; TEMP 97.6
== END 2023-12-23 14:00 | disposition home or self-care (01) ==
LOC: JONCCHEMO 13:15 → J7W 13:15 → JONCCHEMO 14:00
PROVIDERS: ATTEND Internal Medicine Hematology & Oncology
PROC: 3E013GC Introduction of Other Therapeutic Substance into Subcutaneous Tissue, Percutaneous Approach (ICD-10-PCS; principal; 2023-12-23)
DX: C85.14 Unspecified B-cell lymphoma, lymph nodes of axilla and upper limb (principal); Z76.89 Persons encountering health services in other specified circumstances
CPT/HCPCS: 96372; Q5111

== ENCOUNTER 2024-01-11 09:29 | Day surgery (SDC) | payer OTHER ==
[2024-01-11] MEDS: SODIUM CHLORIDE 250 ML IV ONE (09:50)
[2024-01-11 10:09] LABS: HEMATOCRIT 38.4 % (32.4-45.2); HEMOGLOBIN 12.6 GM/dL (10.7-15.3); MCH 28.4 pg (25.7-33.7); MCHC 32.9 g/dl (32.0-36.0); MEAN CELL VOLUME 86.4 fl (80-96); MEAN PLT VOLUME 7.2 fl (7.5-11.1); PLATELET COUNT 363 10^3/uL (134-434); RBC 4.44 M/mm3 (3.60-5.2); RDW 27.1 % (11.6-15.6); WHITE BLOOD COUNT 4.1 K/mm3 (4.0-10.0)
[2024-01-11 10:12] VITALS: RESP 18
[2024-01-11 10:31] LABS: POTASSIUM 4.5 mmol/L (3.5-5.1)
[2024-01-11 10:33] LABS: MAGNESIUM 2.4 mg/dL (1.8-2.4)
[2024-01-11 10:34] LABS: CALCIUM 9.2 mg/dL (8.5-10.1)
[2024-01-11 10:35] LABS: ALBUMIN 3.9 g/dl (3.4-5.0)
[2024-01-11 10:36] LABS: URIC ACID 2.4 mg/dL (2.6-7.2)
[2024-01-11 10:37] LABS: CREATININE 0.9 mg/dL (0.55-1.3)
[2024-01-11 10:38] LABS: BILIRUBIN,DIRECT 0.1 mg/dL (0.0-0.2); PHOSPHOROUS 3.6 mg/dL (2.5-4.9); TOT PROT 7.2 g/dl (6.4-8.2)
[2024-01-11 10:40] LABS: BILIRUBIN,TOTAL 0.3 mg/dL (0.2-1)
[2024-01-11 11:15] LABS: ANISOCYTOSIS 2+; MACROCYTOSIS 1+
[2024-01-11 11:17] LABS: PLATELET ESTIMATE ADEQUATE
[2024-01-11] MEDS: LORATADINE 10 MG TABLET PO ONE (11:24)
[2024-01-11] MEDS: ACETAMINOPHEN 325 MG TABLET (FP) PO ONE (11:24)
[2024-01-11] MEDS: DEXAMETHASONE SODIUM PHOSPHATE 10 MG, DIPHENHYDRAMINE 25 MG in SODIUM CHLORIDE 100 ML IVPB ONE (11:25)
[2024-01-11] MEDS: PALONOSETRON HCL 0.25 MG/5 ML VIAL IVPUSH ONE (11:25)
[2024-01-11] MEDS: FOSAPREPITANT DIMEGLUMINE 150 MG in SODIUM CHLORIDE 145 ML IVPB ONE (11:56)
[2024-01-11] MEDS: DOXOrubicin HCL 50 MG/25 ML VIAL IV ONE (16:06)
[2024-01-11] MEDS: vinCRIStine SULFATE 2 MG in SODIUM CHLORIDE 25 ML IVPB ONE (16:15)
[2024-01-11] MEDS: CYCLOPHOSPHAMIDE INJECTION 1,200 MG in SODIUM CHLORIDE 250 ML IVPB ONE (16:22)
[2024-01-11] MEDS: MAGNESIUM SULFATE IVPB ONE (17:04)
[2024-01-11] MEDS: POTASSIUM CHLORIDE IVPB ONE (17:04)
[2024-01-11] MEDS: SODIUM CHLORIDE IVPB ONE (17:04)
[2024-01-11] MEDS: PORTA CATH FLUSH 10 ML IVPUSH PRN (18:58)
[2024-01-11 19:02] VITALS: TEMP 98
[2024-01-11 19:04] VITALS: BP 110/54; PULSE 62
== END 2024-01-11 19:00 | disposition home or self-care (01) ==
LOC: JONCCHEMO 09:29 → J7W 09:29 → JONCCHEMO 19:00
PROVIDERS: ATTEND Internal Medicine Hematology & Oncology
DX: Z51.11 Encounter for antineoplastic chemotherapy (principal); C85.90 Non-Hodgkin lymphoma, unspecified, unspecified site
CPT/HCPCS: 36415; 80048; 80076; 83615; 83735; 84100; 84550; 85025; 96367; 96375; 96411; 96413; 96415; 96417; J1453; J2469; J9074; J9370; Q5119

== ENCOUNTER 2024-01-12 15:00 | Day surgery (SDC) | payer OTHER ==
[2024-01-12] MEDS: PEGFILGRASTIM-CBQV (UDENYCA) 6 MG/0.6 ML SYRINGE SQ ONE (15:15)
[2024-01-12] MEDS: IRON SUCROSE INJECTION 300 MG in SODIUM CHLORIDE 250 ML IVPB ONE (15:15)
[2024-01-12] MEDS: LORATADINE 10 MG TABLET PO ONE (15:15)
[2024-01-12] MEDS: PORTA CATH FLUSH 10 ML IVPUSH PRN (16:45)
[2024-01-12 17:21] VITALS: RESP 20; TEMP 98
[2024-01-12 17:26] VITALS: BP 112/60; PULSE 70
== END 2024-01-12 17:00 | disposition home or self-care (01) ==
LOC: JONCCHEMO 15:00 → J7W 15:00 → JONCCHEMO 17:00
PROVIDERS: ATTEND Internal Medicine Hematology & Oncology
PROC: 3E013GC Introduction of Other Therapeutic Substance into Subcutaneous Tissue, Percutaneous Approach (ICD-10-PCS; principal; 2024-01-12)
DX: C83.34 Diffuse large B-cell lymphoma, lymph nodes of axilla and upper limb (principal); Z76.89 Persons encountering health services in other specified circumstances
CPT/HCPCS: 96365; 96372; 96402; J1756; Q5111

== ENCOUNTER 2024-02-08 09:17 | Day surgery (SDC) | payer OTHER ==
[2024-02-08] MEDS ORDERED: PALONOSETRON HCL 0.25 MG/5 ML VIAL IVPUSH ONE (09:30)
[2024-02-08] MEDS ORDERED: ACETAMINOPHEN 325 MG TABLET (FP) PO ONE (09:30)
[2024-02-08] MEDS ORDERED: LORATADINE 10 MG TABLET PO ONE (09:30)
[2024-02-08] MEDS ORDERED: DEXAMETHASONE SODIUM PHOSPHATE 10 MG, DIPHENHYDRAMINE 25 MG in SODIUM CHLORIDE 100 ML IVPB ONE (09:30)
[2024-02-08] MEDS ORDERED: FOSAPREPITANT DIMEGLUMINE 150 MG in SODIUM CHLORIDE 145 ML IVPB ONE (09:30)
[2024-02-08] MEDS: SODIUM CHLORIDE 250 ML IV ONE (09:40)
[2024-02-08 10:02] LABS: HEMATOCRIT 37.6 % (32.4-45.2); HEMOGLOBIN 12.4 GM/dL (10.7-15.3); MCH 29.5 pg (25.7-33.7); MCHC 33.1 g/dl (32.0-36.0); MEAN CELL VOLUME 89.3 fl (80-96); MEAN PLT VOLUME 7.9 fl (7.5-11.1); PLATELET COUNT 205 10^3/uL (134-434); RBC 4.21 M/mm3 (3.60-5.2); RDW 24.2 % (11.6-15.6); WHITE BLOOD COUNT 2.5 K/mm3 (4.0-10.0)
[2024-02-08 10:21] LABS: CHLORIDE 110 mmol/L (98-107); POTASSIUM 4.3 mmol/L (3.5-5.1); SODIUM 145 mmol/L (136-145)
[2024-02-08 10:23] LABS: ANION GAP 6 mmol/L (4-13); CO2 28 mmol/L (21-32); MAGNESIUM 2.1 mg/dL (1.8-2.4)
[2024-02-08 10:24] LABS: BLOOD UREA NITROGEN 20.4 mg/dL (7-18); CALCIUM 9.4 mg/dL (8.5-10.1)
[2024-02-08 10:26] LABS: GLUCOSE,RANDOM 99 mg/dL (74-106)
[2024-02-08 10:27] LABS: BILIRUBIN,DIRECT 0.1 mg/dL (0.0-0.2); CREATININE 0.8 mg/dL (0.55-1.3); SGOT/AST 35 U/L (15-37); SGPT/ALT 30 U/L (13-61)
[2024-02-08 10:28] LABS: PHOSPHOROUS 3.3 mg/dL (2.5-4.9); TOT PROT 7.2 g/dl (6.4-8.2); URIC ACID 3.2 mg/dL (2.6-7.2)
[2024-02-08 10:29] LABS: LDH 213 U/L (84-246)
[2024-02-08 10:30] LABS: ALK PHOS 77 U/L (45-117); BILIRUBIN,TOTAL 0.4 mg/dL (0.2-1)
[2024-02-08] MEDS: PORTA CATH FLUSH 10 ML IVPUSH PRN (10:30)
[2024-02-08 10:31] LABS: ANISOCYTOSIS 2+; MACROCYTOSIS 1+
[2024-02-08 10:33] LABS: PLATELET ESTIMATE ADEQUATE
[2024-02-08] MEDS: TBO-FILGRASTIM 300 MCG/0.5 ML DISP.SYRINGE SQ ONE (11:31)
[2024-02-08] MEDS ORDERED: DOXOrubicin HCL 50 MG/25 ML VIAL IV ONE (12:00)
[2024-02-08] MEDS ORDERED: vinCRIStine SULFATE 2 MG in SODIUM CHLORIDE 25 ML IVPB ONE (12:15)
[2024-02-08] MEDS ORDERED: CYCLOPHOSPHAMIDE INJECTION 1,200 MG in SODIUM CHLORIDE 250 ML IVPB ONE (12:30)
[2024-02-08] MEDS ORDERED: SODIUM CHLORIDE IVPB ONE (13:00)
[2024-02-08] MEDS ORDERED: POTASSIUM CHLORIDE IVPB ONE (13:00)
[2024-02-08] MEDS ORDERED: MAGNESIUM SULFATE IVPB ONE (13:00)
[2024-02-08 16:31] VITALS: BP 142/73; PULSE 66; RESP 18; TEMP 98
== END 2024-02-08 12:00 | disposition home or self-care (01) ==
LOC: JONCCHEMO 09:17 → J7W 09:20 → JONCCHEMO 12:00
PROVIDERS: ATTEND Internal Medicine Hematology & Oncology
PROC: 3E013GC Introduction of Other Therapeutic Substance into Subcutaneous Tissue, Percutaneous Approach (ICD-10-PCS; principal; 2024-02-08)
DX: C83.34 Diffuse large B-cell lymphoma, lymph nodes of axilla and upper limb (principal); E61.1 Iron deficiency; K50.00 Crohn's disease of small intestine without complications; Z76.89 Persons encountering health services in other specified circumstances
CPT/HCPCS: 36415; 80048; 80076; 83615; 83735; 84100; 84550; 85025; 86704; 87340; 87517; 96372; J1447

== ENCOUNTER 2024-02-09 09:06 | Day surgery (SDC) | payer OTHER ==
[2024-02-09] MEDS: TBO-FILGRASTIM 300 MCG/0.5 ML DISP.SYRINGE SQ ONE (09:24)
[2024-02-09 16:59] VITALS: BP 124/68; PULSE 72; RESP 16; TEMP 98
== END 2024-02-09 09:30 | disposition home or self-care (01) ==
LOC: JONCCHEMO 09:06 → J7W 09:06 → JONCCHEMO 09:30
PROVIDERS: ATTEND Internal Medicine Hematology & Oncology
PROC: 3E013GC Introduction of Other Therapeutic Substance into Subcutaneous Tissue, Percutaneous Approach (ICD-10-PCS; principal; 2024-02-09)
DX: C83.34 Diffuse large B-cell lymphoma, lymph nodes of axilla and upper limb (principal); K50.00 Crohn's disease of small intestine without complications; E61.1 Iron deficiency; Z76.89 Persons encountering health services in other specified circumstances
CPT/HCPCS: 96372; J1447

== ENCOUNTER 2024-02-10 10:40 | Day surgery (SDC) | payer OTHER ==
[2024-02-10] MEDS: TBO-FILGRASTIM 300 MCG/0.5 ML DISP.SYRINGE SQ ONE (09:30)
[2024-02-10 14:01] VITALS: BP 129/79; PULSE 84; RESP 20; TEMP 97.8
== END 2024-02-10 14:08 | disposition home or self-care (01) ==
LOC: J7W 10:40 → JONCCHEMO 10:40
PROVIDERS: ATTEND Internal Medicine Hematology & Oncology
PROC: 3E013GC Introduction of Other Therapeutic Substance into Subcutaneous Tissue, Percutaneous Approach (ICD-10-PCS; principal; 2024-02-10)
DX: C83.34 Diffuse large B-cell lymphoma, lymph nodes of axilla and upper limb (principal); Z76.89 Persons encountering health services in other specified circumstances
CPT/HCPCS: 96372; J1447

== ENCOUNTER 2024-02-13 08:57 | Day surgery (SDC) | payer OTHER ==
[2024-02-13 10:23] LABS: HEMOGLOBIN 13.7 GM/dL (10.7-15.3); MCH 29.2 pg (25.7-33.7); MCHC 32.7 g/dl (32.0-36.0); MEAN CELL VOLUME 89.4 fl (80-96); MEAN PLT VOLUME 7.9 fl (7.5-11.1); PLATELET COUNT 244 10^3/uL (134-434); RDW 23.1 % (11.6-15.6); WHITE BLOOD COUNT 6.1 K/mm3 (4.0-10.0)
[2024-02-13 10:35] LABS: CHLORIDE 108 mmol/L (98-107); POTASSIUM 4.4 mmol/L (3.5-5.1); SODIUM 143 mmol/L (136-145)
[2024-02-13 10:37] LABS: ANION GAP 7 mmol/L (4-13); CO2 28 mmol/L (21-32); MAGNESIUM 2.3 mg/dL (1.8-2.4)
[2024-02-13 10:38] LABS: ALBUMIN 4.1 g/dl (3.4-5.0); BLOOD UREA NITROGEN 24.3 mg/dL (7-18); GLUCOSE,RANDOM 92 mg/dL (74-106)
[2024-02-13 10:40] LABS: CREATININE 0.8 mg/dL (0.55-1.3); SGOT/AST 23 U/L (15-37); SGPT/ALT 26 U/L (13-61); URIC ACID 4.4 mg/dL (2.6-7.2)
[2024-02-13 10:41] LABS: BILIRUBIN,DIRECT 0.1 mg/dL (0.0-0.2); PHOSPHOROUS 3.8 mg/dL (2.5-4.9)
[2024-02-13 10:42] LABS: TOT PROT 7.3 g/dl (6.4-8.2)
[2024-02-13 10:43] LABS: LDH 228 U/L (84-246)
[2024-02-13 10:44] LABS: ALK PHOS 90 U/L (45-117)
[2024-02-13 10:58] LABS: ANISOCYTOSIS 1+; MACROCYTOSIS 0
[2024-02-13] MEDS: SODIUM CHLORIDE 250 ML IV ONE (11:12)
[2024-02-13] MEDS: ACETAMINOPHEN 325 MG TABLET (FP) PO ONE (11:16)
[2024-02-13] MEDS: LORATADINE 10 MG TABLET PO ONE (11:18)
[2024-02-13] MEDS: DEXAMETHASONE SODIUM PHOSPHATE 10 MG, DIPHENHYDRAMINE 25 MG in SODIUM CHLORIDE 100 ML IVPB ONE (11:18)
[2024-02-13 11:23] LABS: BILIRUBIN,TOTAL 0.2 mg/dL (0.2-1)
[2024-02-13] MEDS: SODIUM CHLORIDE IVPB ONE ×2 (11:59→16:42)
[2024-02-13] MEDS: RITUXIMAB PVVR IVPB ONE (11:59)
[2024-02-13] MEDS: PALONOSETRON HCL 0.25 MG/5 ML VIAL IVPUSH ONE (15:04)
[2024-02-13] MEDS: FOSAPREPITANT DIMEGLUMINE 150 MG in SODIUM CHLORIDE 145 ML IVPB ONE (15:07)
[2024-02-13] MEDS: DOXOrubicin HCL 50 MG/25 ML VIAL IV ONE (15:49)
[2024-02-13] MEDS: vinCRIStine SULFATE 2 MG in SODIUM CHLORIDE 25 ML IVPB ONE (15:57)
[2024-02-13] MEDS: CYCLOPHOSPHAMIDE INJECTION 1,240 MG in SODIUM CHLORIDE 250 ML IVPB ONE (16:06)
[2024-02-13] MEDS: POTASSIUM CHLORIDE IVPB ONE (16:42)
[2024-02-13] MEDS: MAGNESIUM SULFATE IVPB ONE (16:42)
[2024-02-13 17:04] VITALS: RESP 16; TEMP 98.4
[2024-02-13 18:18] VITALS: BP 123/65; PULSE 58
[2024-02-13] MEDS: PORTA CATH FLUSH 10 ML IVPUSH PRN (18:23)
== END 2024-02-13 18:50 | disposition home or self-care (01) ==
LOC: J7W 08:57 → JONCCHEMO 08:57
PROVIDERS: ATTEND Internal Medicine Hematology & Oncology
DX: Z51.11 Encounter for antineoplastic chemotherapy (principal); C83.34 Diffuse large B-cell lymphoma, lymph nodes of axilla and upper limb
CPT/HCPCS: 36415; 80048; 80076; 83615; 83735; 84100; 84550; 85025; 96367; 96375; 96411; 96413; 96415; 96417; J1453; J2469; J9074; J9370; Q5119

== ENCOUNTER 2024-02-14 15:36 | Day surgery (SDC) | payer OTHER ==
[2024-02-14] MEDS: IRON SUCROSE INJECTION 300 MG in SODIUM CHLORIDE 235 ML IVPB ONE (15:47)
[2024-02-14] MEDS: LORATADINE 10 MG TABLET PO ONE (15:48)
[2024-02-14 16:17] VITALS: TEMP 98.2
[2024-02-14] MEDS: PEGFILGRASTIM-CBQV (UDENYCA) 6 MG/0.6 ML SYRINGE SQ ONE (17:03)
[2024-02-14] MEDS: PORTA CATH FLUSH 10 ML IVPUSH PRN (17:04)
[2024-02-14 17:10] VITALS: BP 116/59; PULSE 60; RESP 18
== END 2024-02-14 17:12 | disposition home or self-care (01) ==
LOC: JONCCHEMO 15:36 → J7W 15:36 → JONCCHEMO 17:12
PROVIDERS: ATTEND Internal Medicine Hematology & Oncology
PROC: 3E043GC Introduction of Other Therapeutic Substance into Central Vein, Percutaneous Approach (ICD-10-PCS; principal; 2024-02-14)
PROC: 3E013GC Introduction of Other Therapeutic Substance into Subcutaneous Tissue, Percutaneous Approach (ICD-10-PCS; 2024-02-14)
DX: C85.80 Other specified types of non-Hodgkin lymphoma, unspecified site (principal); E61.1 Iron deficiency
CPT/HCPCS: 96365; 96372; J1756; Q5111

== ENCOUNTER 2024-03-06 10:07 | Day surgery (SDC) | payer OTHER ==
[2024-03-06 11:27] LABS: HEMATOCRIT 37.9 % (32.4-45.2); HEMOGLOBIN 12.3 GM/dL (10.7-15.3); MCH 30.9 pg (25.7-33.7); MCHC 32.5 g/dl (32.0-36.0); MEAN CELL VOLUME 95.1 fl (80-96); MEAN PLT VOLUME 7.6 fl (7.5-11.1); PLATELET COUNT 344 10^3/uL (134-434); RBC 3.99 M/mm3 (3.60-5.2); RDW 17.8 % (11.6-15.6); WHITE BLOOD COUNT 3.3 K/mm3 (4.0-10.0)
[2024-03-06 11:50] LABS: POTASSIUM 4.3 mmol/L (3.5-5.1)
[2024-03-06 11:52] LABS: MAGNESIUM 2.2 mg/dL (1.8-2.4)
[2024-03-06 11:55] LABS: CALCIUM 9.4 mg/dL (8.5-10.1); URIC ACID 3.9 mg/dL (2.6-7.2)
[2024-03-06 11:56] LABS: ALBUMIN 3.9 g/dl (3.4-5.0); BLOOD UREA NITROGEN 19.4 mg/dL (7-18); CREATININE 0.7 mg/dL (0.55-1.3)
[2024-03-06 11:57] LABS: TOT PROT 6.9 g/dl (6.4-8.2)
[2024-03-06 11:59] LABS: PHOSPHOROUS 3.9 mg/dL (2.5-4.9)
[2024-03-06 12:00] LABS: BILIRUBIN,DIRECT 0.1 mg/dL (0.0-0.2)
[2024-03-06 12:01] LABS: BILIRUBIN,TOTAL 0.4 mg/dL (0.2-1)
[2024-03-06 13:06] LABS: PLATELET ESTIMATE ADEQUATE
[2024-03-06] MEDS: SODIUM CHLORIDE 250 ML IV ONE (13:22)
[2024-03-06] MEDS: FOSAPREPITANT DIMEGLUMINE 150 MG in SODIUM CHLORIDE 145 ML IVPB ONE (13:22)
[2024-03-06] MEDS: DEXAMETHASONE SODIUM PHOSPHATE 10 MG, DIPHENHYDRAMINE 25 MG in SODIUM CHLORIDE 100 ML IVPB ONE (13:57)
[2024-03-06] MEDS: ACETAMINOPHEN 325 MG TABLET (FP) PO ONE (14:02)
[2024-03-06] MEDS: LORATADINE 10 MG TABLET PO ONE (14:02)
[2024-03-06] MEDS: PALONOSETRON HCL 0.25 MG/5 ML VIAL IVPUSH ONE (14:23)
[2024-03-06] MEDS: SODIUM CHLORIDE IVPB ONE ×2 (14:36→17:56)
[2024-03-06] MEDS: RITUXIMAB PVVR IVPB ONE (14:36)
[2024-03-06] MEDS: DOXOrubicin HCL 50 MG/25 ML VIAL IV ONE (17:06)
[2024-03-06] MEDS: vinCRIStine SULFATE 2 MG in SODIUM CHLORIDE 25 ML IVPB ONE (17:12)
[2024-03-06] MEDS: CYCLOPHOSPHAMIDE INJECTION 1,240 MG in SODIUM CHLORIDE 250 ML IVPB ONE (17:20)
[2024-03-06] MEDS: MAGNESIUM SULFATE IVPB ONE (17:56)
[2024-03-06] MEDS: POTASSIUM CHLORIDE IVPB ONE (17:56)
[2024-03-06 18:01] VITALS: TEMP 97.7
[2024-03-06 19:51] VITALS: BP 100/54; PULSE 57; RESP 1
[2024-03-06] MEDS: PORTA CATH FLUSH 10 ML IVPUSH PRN (19:57)
== END 2024-03-06 20:03 | disposition home or self-care (01) ==
LOC: JONCCHEMO 10:07 → J7W 10:08 → JONCCHEMO 20:03
PROVIDERS: ATTEND Internal Medicine Hematology & Oncology
PROC: 3E04305 Introduction of Other Antineoplastic into Central Vein, Percutaneous Approach (ICD-10-PCS; principal; 2024-03-06)
PROC: 3E043GC Introduction of Other Therapeutic Substance into Central Vein, Percutaneous Approach (ICD-10-PCS; 2024-03-06)
PROC: 3E0437Z Introduction of Electrolytic and Water Balance Substance into Central Vein, Percutaneous Approach (ICD-10-PCS; 2024-03-06)
DX: Z51.11 Encounter for antineoplastic chemotherapy (principal); C83.34 Diffuse large B-cell lymphoma, lymph nodes of axilla and upper limb
CPT/HCPCS: 36415; 80048; 80076; 83615; 83735; 84100; 84550; 85025; 96366; 96367; 96375; 96411; 96413; 96415; 96417; J1453; J2469; J9074; J9370; Q5119

== ENCOUNTER → 2024-03-07 16:00 | Day surgery (SDC) | payer OTHER ==
[2024-03-07] MEDS: LORATADINE 10 MG TABLET PO ONE (15:45)
[2024-03-07] MEDS: PEGFILGRASTIM-CBQV (UDENYCA) 6 MG/0.6 ML SYRINGE SQ ONE (15:45)
[2024-03-07 16:58] VITALS: BP 121/61; PULSE 62; RESP 20; TEMP 98.8
== END | disposition home or self-care (01) ==
LOC: J7W 16:00 → JONCCHEMO 16:00
PROVIDERS: ATTEND Internal Medicine Hematology & Oncology
PROC: 3E013GC Introduction of Other Therapeutic Substance into Subcutaneous Tissue, Percutaneous Approach (ICD-10-PCS; principal; 2024-03-07)
DX: Z76.89 Persons encountering health services in other specified circumstances (principal); C83.34 Diffuse large B-cell lymphoma, lymph nodes of axilla and upper limb
CPT/HCPCS: 96372; Q5111